=== PATIENT | female | born 1990 | race Caucasian/White ===

== ENCOUNTER 2024-09-13 13:07 | Outpatient (OUT) | payer OTHER, SELFPAY ==
--- NOTE | 2024-09-13 16:50 | P.CN_ITS ---
Consult Note: HPI Data of Consult Patient: new to practice Consult date: 09/13/24 Requesting Physician: Agustin Pérez MD Primary Care Provider: KATY PATRICIO Consult Narrative Reason for consult: neck pain, left arm numbness Narrative: 34yof who presents for evaluation. notes longstanding neck, left arm symptoms. cervical mri consistent with disc bulging with nerve root impingement at c5-6 and c6-7. has undergone PT for 6 weeks within past 6 months, with worsening of symptoms. has tried baclofen, which helps. denies adverse med side effects. cc:: CC: Agustin Pérez MD Review of Systems ROS Status of ROS 10 or more systems reviewed and unremark able except as noted in history and below Meds Home Medications and Allergies Home Medications ?Medication ?Instructions ?Recorded ?Confirmed ?Type baclofen 10 mg tablet 10 mg PO BID 09/13/24 09/13/24 History Allergies Allergy/AdvReac Type Severity Reaction Status Date / Time No Known Drug Allergies Allergy Verified 09/13/24 15:10 Exam Narrative Exam Narrative: Psych-alert and oriented x 3.? Attentive and appropriate, constitutionally normal, displays normal mood and affect per situation.? There are no obvious deficits in memory, reasoning, or intellect.? Skin-no obvious rashes, bruising, or erythema noted to the patient's area of pain.? Extremities-upper extremities are warm with minimal edema and palpable pulses. Cervical- tenderness to palpation noted in the cervical spine and paraspinal musculature.? Pain is elicited with flexion, extension, and lateral rotation of the cervical spine.? Range of motion is diminished due to pain. Facet loading maneuvers are negative.? Strength-unremarkable and within normal limits Sensory-no notable sensory deficits in the bilateral upper extremities to touch or pinprick with the exception to decreased sensation to the right C5, 6, 7 dermatomal distribution.? Coordination remains intact.? Gait remains non-antalgic. Assessment and Plan Assessment and Plan (1) Cervical radiculopathy: (2) Cervical disc displacement: Plan 34yof who presents for evaluation. failed conservative measures, as noted. imaging reviewed, as noted. given symptoms and imaging, prudent to attempt left c5-6, 6-7 tfesi under fluoroscopic guidance. she is in agreement. meds reviewed, agreed to refill baclofen 10mg bid prn. follow up after procedure.
== END 2024-09-13 13:08 | disposition home or self-care (01) ==
LOC: PM 13:08
PROVIDERS: PCP Physician Assistant; Visit Provider Anesthesiology
DX: M54.12 Radiculopathy, cervical region (principal); M50.222 Other cervical disc displacement at C5-C6 level; M50.223 Other cervical disc displacement at C6-C7 level
CPT/HCPCS: G0463

== ENCOUNTER 2024-09-27 08:06 | Day surgery (SDC) | payer OTHER, SELFPAY ==
[2024-09-27 08:13] VITALS: BP 146/87; PULSE 83; TEMP 36.4; O2SAT 100
--- OUTSIDE RECORDS SUMMARY | 2024-09-27 08:27 | XMS_ITS | CCD ---
Author Organization [facility] CliniSyor Care Team Providers Care 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 Name Role Phone Yong Moraes Unavailable Caroline Sher MD Primary Care Provider [phone] Shwetha Murcia Unavailable SHWETHA PATRICIO Referring Unavailable NO PCP, NO PCP Primary Care Unavailable SOLEDAD KNIGHT Referring Unavailable NO PCP, NO PCP Primary Care Unavailable KERI RILEY. Referring Unavailable KERI RILEY Referring Unavailable MILLIE FRANCO Referring Unavailable SERVICES, [facility] Primary Care Unava ilable Shwetha Murcia Unavailable SAUMYA HARVEY Attending Unavailable MILLIE FRANCO Attending Unavailable YONG LU Attending Unavailable SHWETHA PATRICIO Attending Unavailable KAVYA FONSECA Attending Unavailable MILLIE FRANCO Attending Unavailable MILLIE FRANCO Referring Unavailable KAVYA FONSECA Attending Unavailable SHWETHA PATRICIO Referring Unavailable KAVYA FONSECA Attending Unavailable SHWETHA PATRICIO Referring Unavailable KERI RILEY Attending Unavailable KAVYA FONSECA Attending Unavailable HEMSHWETHA NGUYEN Referring Unavailable BLACKSSCOTT LIZARRAGAEMY Jennifer Attending Unavailable HEMSHWETHA NGUYEN Referring Unavailable SCOTT FONSECAEMCheyenne Elias Attending Unavailable HEMSHWETHA NGUYEN Referring Unavailable HEMSHWETHA NGUYEN Attending Unavailable Unallocatfrancesco PAPPAS, Noms Provider Primary Care Provi maggie No Pcp, No Pcp Primary Care Provider Unavailabl e Medications Current Medications Medication Drug Class(es) Dates Sig (Normalized) Sig (Original) baclofen 10 mg oral tablet (2 sources) gamma-Aminobutyric Acid-ergic Agonist Start: 08-17-2024 End: 08-31-2024 take 1 tablet by mouth twice daily as needed for muscle spasms baclofen (Lioresal) 10 MG tablet Indications: Spasm of left trapezius muscle Take 1 tablet (10 mg) by mouth 2 (two) times a day as needed for muscle spasms for up to 14 days 28 tablet 08/17/2024 08/31/2024 Active calcium carbonate 1250 mg chewable tablet (2 sources) calcium carbonat e (Os-Nestor) 1250 (500 Ca) MG chewable tablet Chew 1 tablet Daily As needed Active docusate sodium 100 mg oral capsule (1 source) take 1 capsule by mouth once daily docusate sodium (COLACE) 100 mg capsule Take 100 mg by mouth daily. Active ibuprofen 800 mg oral tablet (1 source) Nonsteroidal Anti-inflammatory Drug take 1 tablet by mouth every six hours as needed for pain ibuprofen (ADVIL,MOTRIN) 800 mg tablet Take 800 mg by mouth every 6 (six) hours as needed for pain. Active Multiple Vitamins-Minerals (HAIR SKIN AND NAILS FORMULA PO) (20 sources) Start: 01-21-2024 End: 08-17-2024 Multiple Vitamins-Minerals (HAIR SKIN AND NAILS FORMULA PO) 01/21/2024 08/17/2024 Discontinued (Other) Start: 01-21-2024 Multiple Vitam ins-Minerals (HAIR SKIN AND NAILS FORMULA PO) 01/21/2024 Active omeprazole 20 mg delayed release oral tablet (2 sources) Proton Pump Inhibitor End: 08-17-2024 take 1 tablet by mouth before mealtime omeprazole OTC (PriLOSEC OTC) 20 MG EC tablet Take 20 mg by mouth in the morning. Take before meals. Do not crush, chew, or split.. 08/17/2024 Discontinued (Ineffective) pantoprazole 40 mg delayed release oral tablet (2 sources) Proton Pump Inhibitor Start: 08-17-2024 take 1 tablet by mouth before mealtime pantoprazole (Protonix) 40 MG EC tablet Indications: Gastroesophageal reflux disease without esophagitis Take 1 tablet (40 mg) by mouth in the morning. Take before meals. Do not crush, chew, or split. Take for two weeks at a time as needed.. 30 tablet 5 08/17/2024 Active Start: 08-17-2024 take 1 tablet by contreras th before mealtime pantoprazole (Protonix) 40 MG EC tablet Indications: Gastroesophageal reflux disease without esophagitis Take 1 tablet (40 mg) by mouth in the morning. Take before meals. Do not crush, chew, or split. Take for two weeks at a time as needed.. 30 tablet 5 08/17/2024 Active 27-1 MG tablet (20 sources) End: 08-17-2024 27-1 MG tablet Take by mouth. 08/17/2024 Discontinued (Other) 27-1 MG tablet Take by mouth. Active Problems Active Problems Problem Classification Problem Date Documented Date Episodic/Chronic Esophageal disorders (2 sources) Gastroesophageal reflux disease without esophagitis; Translations: [Gastro-esophageal reflux disease without esophagitis] 08-17-2024 Chronic Other bone disease and musculoskeletal deformities (5 sources) Scapulalgia; Translations: [Other specified disorders of bone, shoulder] 06-16-2024 Episodic Other connective tissue disease (2 sources) Muscle spasm of cervical muscle of neck 08-17-2024 Episodic Other hereditary and degenerative nervous system conditions (20 sources) Fine tremor; Translations: [Other specified forms of tremor] Onset: 06-02-2024 06-02-2024 Chronic Other non-traumatic joint disorders (2 sources) Chronic pain of left upper limb; Translations: [Pain in left shoulder] 08-17-2024 Episodic Spondylosis; intervertebral disc disorders; other back problems (3 sources) Degeneration of cervical intervertebral disc; Translations: [Other cervical disc degeneration, unspecified cervical region] Onset: 08-09-2024 08-09-2024 Chronic Spondylosis; intervertebral disc disorders; other back problems (20 sources) Pain in cervical spine; Translations: [Cervicalgia] Onset: 06-02-2024 06-02-2024 Episodic Spontaneous (5 sources) Miscarriage; Translations: [Complete or unspecified spontaneous without complication] Onset: 08-02-2024 06-16-2024 Episodic Unclassified (2 sources) Chronic pain of left upper limb 08-17-2024 Past or Other Problems Problem Classification Problem Date Documented Da te Episodic/Chronic Administrative/social admission (1 source) Patient encounter status; Translations: [Encounter for blood-alcohol and blood-drug test] 05-24-2024 Episodic Menstrual disorders (20 sources) Menorrhagia; Translations: [Excessive and frequent menstruation with regular cycle] Onset: 08-27-2023 Resolved: 06-02-2024 06-02-2024 Chronic Other and delivery including normal (1 source) care status; Translations: [Encounter for supervision of other normal , first trimester] 05-24-2024 Episodic Other screening for suspected conditions (not mental disorders or infectious disease) (1 source) Encounter for screening for other suspected endocrine disorder; Translations: [Encounter for screening for other suspected endocrine disorder] Onset: 01-30-2024 Episodic Other skin disorders (1 source) Nonscarring hair loss, unspecified; Translations: [Nonscarring hair loss, unspecified] Onset: 01-30-2024 Episodic NEGATED: Highlighted row has been ruled out!Unclassified (1 source) No known active problems 02-04-2024 Results Test Name Value Interpretation Reference Range Facility MR CERVICAL SPINE WO CONTon 08-09-2024 MR CERVICAL SPINE WO CONT MR CERVICAL SPINE WO CONT CLINICAL INFORMATION: Cervical spine pain; Cervical radiculopathy at C5 TECHNIQUE: MR CERVICAL SPINE WO CONT Multisequence multiplanar imaging of the cervical spine was obtained utilizing the routine cervical protocol. There is no cervical malalignment. Endplates appear intact without compression. Cerebellar tonsils are normal position. Cord signal characteristics are unremarkable. The C2-3, C3-4, C4-C5 levels are unremarkable. At the C5-6 level there is disc protrusion slightly asymmetric to the left. Central canal is only mildly narrowed. No significant neural foraminal encroachment. At the C6-7 level minor disc protrusion again seen with only mild central canal narrowing. Neural foramina appear patent. C7-T1 level is unremarkable. Posterior elements appear intact. Facets are aligned. Inversion recovery images show normal bone marrow signal. IMPRESSION: Mild degenerative changes at C5-6 and C6-7 without significant stenosis. Finalized by Tiburcio Gordon MD on 08/09/2024 12:20 PM Normal [facility] HCG.beta subunit IA 3rd IS Q non 08-02-2024 HCG.beta subunit Qn 7 m[IU]/mL Normal [facility] Comment on above: Result Comment: NEW REFERENCE RANGE WEEKS (SINCE LMP) MIU/mL 3 WEEKS 5 - 50 4 WEEKS 5 - 426 5 WEEKS 18 - 7,340 6 WEEKS 1,080 - 56,500 7-8 WEEKS 7,650 - 229,000 9-12 WEEKS 25,700 - 288,000 13-16 WEEKS 13,300 - 254,000 17-24 WEEKS 4,060 - 165,400 25-40 WEEKS 3,640 - 117,000 MALES AND NON- FEMALES - <5 MIU/mL This test has been FDA approved for use in only. Elevated levels are not necessarily diagnostic for trophoblastic or nontrophoblastic neoplasms. Performed By: #### C BCA, 2839-9, THYR, 3051-0, 2842-3, 2132-9, 2243-4, 50347-0 #### [facility] ([id number]) [address] [place] [address], [facility] [address] [place] [address] HCG.beta subunit IA 3rd IS Q non 07-17-2024 HCG.beta subunit Qn 77 m[IU]/mL Normal [facility] Comment on above: Result Comment: NEW REFERENCE RANGE WEEKS (SINCE LMP) MIU/mL 3 WEEKS 5 - 50 4 WEEKS 5 - 426 5 WEEKS 18 - 7,340 6 WEEKS 1,080 - 56,500 7-8 WEEKS 7,650 - 229,000 9-12 WEEKS 25,700 - 288,000 13-16 WEEKS 13,300 - 254,000 17-24 WEEKS 4,060 - 165,400 25-40 WEEKS 3,640 - 117,000 MALES AND NON- FEMALES - <5 MIU/mL This test has been FDA approved for use in only. Elevated levels are not necessarily diagnostic for trophoblastic or nontrophoblastic neoplasms. Performed By: #### C BCA, 2839-9, THYR, 3051-0, 2842-3, 2132-9, 2243-4, 13372-7 #### [facility] ([id number]) [facility], [address] [place] [address] HCG.beta subunit IA 3rd IS Q non 07-03-2024 HCG.beta subunit Qn 3133 m[IU]/mL Normal [facility] Comment on above: Result Comment: NEW REFERENCE RANGE WEEKS (SINCE LMP) MIU/mL 3 WEEKS 5 - 50 4 WEEKS 5 - 426 5 WEEKS 18 - 7,340 6 WEEKS 1,080 - 56,500 7-8 WEEKS 7,650 - 229,000 9-12 WEEKS 25,700 - 288,000 13-16 WEEKS 13,300 - 254,000 17-24 WEEKS 4,060 - 165,400 25-40 WEEKS 3,640 - 117,000 MALES AND NON- FEMALES - <5 MIU/mL This test has been FDA approved for use in only. Elevated levels are not necessarily diagnostic for trophoblastic or nontrophoblastic neoplasms. Performed By: #### 2 0415-6 #### [facility] ([id number]) [address] [place] [address], [address] [place] [address] CBC AND AUTO DIFFon 01-30-20 24 ABSOLUTE BASOPHIL 0.1 X10E9/L Normal 0.0-0.2 [facility] Comment on above: Performed By: #### C BCA, 2839-9, THYR, 3051-0, 2842-3, 2132-9, 2243-4, 72268-0 #### [facility] ([id number]) [address] [place] [address], [address] [place] [address] ABSOLUTE NEUTROPHIL 2.7 X10E9/L Normal 1.5-6.6 [facility] Comment on above: Performed By: #### C BCA, 2839-9, THYR, 3051-0, 2842-3, 2132-9, 2243-4, 40024-1 #### [facility] ([id number]) [address] [place] [address], [address] [place] [address] Basophils/100 WBC (Bld) 0.9 % Normal [facility] Comment on above: Performed By: #### C BCA, 2839-9, THYR, 3051-0, 2842-3, 2132-9, 2243-4, 29180-4 #### [facility] ([id number]) [address], [address] [place] [address] Eosinophils (Bld) [#/Vol] 0.1 10*3/uL Normal 0.0-0.4 [facility] Comment on above: Performed By: #### C BCA, 2839-9, THYR, 3051-0, 2842-3, 2132-9, 2243-4, 82212-1 #### [facility] ([id number]) [address], [address] [place] [address] Eosinophils/100 WBC (Bld) 1.5 % Normal [facility] Comment on above: Performed By: #### C BCA, 2839-9, THYR, 3051-0, 2842-3, 2132-9, 2243-4, 64720-9 #### [facility] ([id number]) [address], [facility] [address] [place] [address] Erythrocyte distribution width (RBC) [Ratio] 14.4 % Normal 11.5-15.0 [facility] Comment on above: Performed By: #### C BCA, 2839-9, THYR, 3051-0, 2842-3, 2132-9, 2243-4, 04230-8 #### [facility] ([id number]) [address] [address] [place] [address] Hematocrit (Bld) [Volume fraction] 40.9 % Normal 35-47 [facility] Comment on above: Performed By: #### C BCA, 2839-9, THYR, 3051-0, 2842-3, 2132-9, 2243-4, 83339-6 #### [facility] ([id number]) [address], [address] [place] [address] Hemoglobin (Bld) [Mass/Vol] 13.9 g/dL Normal 11.7-15.5 [facility] Comment on above: Performed By: #### C BCA, 2839-9, THYR, 3051-0, 2842-3, 2132-9, 2243-4, 55616-8 #### [facility] ([id number]) [address], [address] [place] [address] Lymphocytes (Bld) [#/Vol] 2.4 10*3/uL Normal 1.0-3.5 [facility] Comment on above: Performed By: #### C BCA, 2839-9, THYR, 3051-0, 2842-3, 2132-9, 2243-4, 84713-1 #### [facility] ([id number]) [address], [address] [place] [address] Lymphocytes/100 WBC (Bld) 43.3 % Normal [facility] Comment on above: Performed By: #### C BCA, 2839-9, THYR, 3051-0, 2842-3, 2132-9, 2243-4, 83007-3 #### [facility] ([id number]) [address], [address] [place] [address] MCH (RBC) [Entitic mass] 28.2 pg Normal 27-34 [facility] Comment on above: Performed By: #### C BCA, 2839-9, THYR, 3051-0, 2842-3, 2132-9, 2243-4, 95078-5 #### [facility] ([id number]) [address], [address] [place] [address] MCHC (RBC) [Mass/Vol] 34.0 g/dL Normal 32-36 [facility] Comment on above: Performed By: #### C BCA, 2839-9, THYR, 3051-0, 2842-3, 2132-9, 2243-4, 06887-1 #### [facility] ([id number]) [address], [address] [place] [address] MCV (RBC) [Entitic vol] 83 fL Normal 80-100 [facility] Comment on above: Performed By: #### C BCA, 2839-9, THYR, 3051-0, 2842-3, 2132-9, 2243-4, 37736-2 #### [facility] ([id number]) [address], [address] [place] [address] Monocytes (Bld) [#/Vol] 0.4 10*3/uL Normal 0-0.9 [facility] Comment on above: Performed By: #### C BCA, 2839-9, THYR, 3051-0, 2842-3, 2132-9, 2243-4, 89381-3 #### [facility] ([id number]) [address], [address] [place] [address] Monocytes/100 WBC (Bld) 7.4 % Normal [facility] Comment on above: Performed By: #### C BCA, 2839-9, THYR, 3051-0, 2842-3, 2132-9, 2243-4, 54002-7 #### [facility] ([id number]) [address], [address] [place] [address] Neutrophils/100 WBC (Bld) 46.9 % Normal [facility] Comment on above: Performed By: #### C BCA, 2839-9, THYR, 3051-0, 2842-3, 2132-9, 2243-4, 34158-7 #### [facility] ([id number]) [address], [address] [place] [address] Platelet mean volume (Bld) [Entitic vol] 8.1 fL Normal 7-12 [facility] Comment on above: Performed By: #### C BCA, 2839-9, THYR, 3051-0, 2842-3, 2132-9, 2243-4, 75907-2 #### [facility] ([id number]) [address], [address] [place] [address] Platelets (Bld) [#/Vol] 290 10*3/uL Normal 150-450 [facility] Comment on above: Performed By: #### C BCA, 2839-9, THYR, 3051-0, 2842-3, 2132-9, 2243-4, 68132-9 #### [facility] ([id number]) [address], [address] [place] [address] RBC COUNT 4.94 X10E12/L Normal 3.80-5.20 [facility] Comment on above: Performed By: #### Haider BCA, 2839-9, THYR, 3051-0, 2842-3, 2132-9, 2243-4, 02568-8 #### [facility] ([id number]) [address], [address] [place] [address] WBC (Bld) [#/Vol] 5.7 10*3/uL Normal 4.0-11.0 [facility] Comment on above: Performed By: #### Haider BCA, 2839-9, THYR, 3051-0, 2842-3, 2132-9, 2243-4, 79886-8 #### [facility] ([id number]) [address], [address] [place] [address] Cortisol [Mass/Vol]on 2023 CORTISOL 7.9 ug/dL Normal [facility] Comment on above: Result Comment: Due to the diurnal variation of cortisol levels in normal subjects, all cortisol measurements should be referenced to the time of day of sample collection. AM Cortisol Age>=6 6.7-22.4 ug/dL PM Cortisol Age>=6 <10 ug/dL Performed By: #### 2 143-6 #### [facility] ([id number]) [address] [facility], [address] [place] [address] E2 [Mass/Vol]on 01-30-2024 ESTRADIOL 45.3 pg/mL Normal [facility] Comment on above: Result Comment: NON- FEMALES Mid follicular: 25-115 pg/mL Ovulatory Peak: 32.1-517 pg/mL Mid Luteal: 36.5-246 pg/mL Post-Menopausal Females: <15.0-25.1 pg/mL (Not on hormone therapy) The Access Sensitive Estradiol assay results are not intended to be used to measure the effectiveness of exogeneous Estradiol supplementation, for example, when the patient is on hormone replacement therapy. The presence of estradiol drug analogues and their metabolites could have an impact on estradiol recovery when using this assay. Performed By: #### C BCA, 2839-9, THYR, 3051-0, 2842-3, 2131-9, 3-4, 19060-9 #### [facility] ([id number]) [address] [facility], [address] [place] [address] FREE T3on 01-30-2024 Free T3 [Mass/Vol] 3.69 pg/mL Normal 2.50-3.90 [facility] Comment on above: Performed By: #### C BCA, 2839-9, THYR, 3051-0, 2842-3, 9, 3-4, 45458-2 #### [facility] ([id number]) [address], [address] [place] [address] Follitropin Qnon 01-30-2024 FOLLICLE STIM HORMONE 9.1 mIU/mL Normal [facility] Comment on above: Result Comment: NORMAL FEMALE Luteal 1.8-5.1 mIU/mL Follicular 3.8-8.8 mIU/mL Mid Cycle 4.5-22.5 mIU/mL Post Migdalia 16.7-113.6 mIU/mL Performed By: ###Aixa Maloney BCA, 2839-9, THYR, 3051-0, 2842-3, 2131-9, 3-4, 54561-2 #### [facility] ([id number]) [address], [address] [place] [address] Progesterone [Mass/Vol]on PROGESTERONE 0.5 ng/mL Normal [facility] Comment on above: Result Comment: FEMALES: 1st Tri: 4.7-50.7 ng/ml 2nd Tri: 19.4-45.3 ng/ml MENSTRUATING FEMALES: Follicular: 0.3-1.5 ng/ml Mid Luteal: 5.2-18.6 ng/ml Post [place]: <0.1-0.8 ng/ml Performed By: ##Manfred Maloney BCA, 2839-9, THYR, 3051-0, 2842-3, 2132-9, 2243-4, 89209-1 #### [facility] ([id number]) [address], [address] [place] [address] Prolactin [Mass/Vol]on 01-29 PROLACTIN 6.1 ng/mL Normal 3.3-26.7 [facility] Comment on above: Performed By: #### C BCA, 2839-9, THYR, 3051-0, 2842-3, 2132-9, 2243-4, 42991-3 #### [facility] ([id number]) [address], [address] [place] [address] THYROID PROFILEon 01-30-2024 Free T4 [Mass/Vol] 1.04 ng/dL Normal 0.61-1.60 [facility] Comment on above: Performed By: #### C BCA, 2839-9, THYR, 3051-0, 2842-3, 2132-9, 2243-4, 85758-9 #### [facility] ([id number]) [address] [facility], [address] [place] [address] TSH 0.95 uIU/mL Normal 0.49-4.67 [facility] Comment on above: Performed By: #### C BCA, 2839-9, THYR, 3051-0, 2842-3, 2132-9, 2243-4, 19242-7 #### [facility] ([id number]) [address], [address] [place] [address] VITAMIN B12on 01-30-2024 Cobalamin (Vitamin B12) [Mass/Vol] 422 pg/mL Normal 180-914 [facility] Comment on above: Performed By: #### C BCA, 2839-9, THYR, 3051-0, 2842-3, 2132-9, 2243-4, 73663-0 #### [facility] ([id number]) [address], [address] [place] [address] Complete Blood Count Auto Di ffon 01-27-2022 Basophils (Bld) [#/Vol] 0.1 10*3/uL Normal 0.0-0.2 [facility] Comment on above: Order Comment: Comme nt Draw at 630 am Result Comment: PERF ORMED BY: [facility] [address] [place] [address] PATHOLOGIST QUALITY AUDITOR CARMELO GROVES M.D. Performed By: #### C BC #### [address] Basophils/100 WBC (Bld) 0.5 % Normal . [facility] Comment on above: Order Comment: Comme nt Draw at 630 am Performed By: #### C BC #### [address] Eosinophils (Bld) [#/Vol] 0.3 10*3/uL Normal 0.0-0.45 [facility] Comment on above: Order Comment: Comme nt Draw at 630 am Performed By: #### C BC #### [address] Eosinophils/100 WBC (Bld) 1.9 % Normal . [facility] Comment on above: Order Comment: Comme nt Draw at 630 am Performed By: #### C BC #### [address] Erythrocyte distribution width (RBC) [Ratio] 17.4 % High 11.9-15.3 [facility] Comment on above: Order Comment: Comme nt Draw at 630 am Performed By: #### C BC #### [address] Hematocrit (Bld) [Volume fraction] 30.5 % Low 34.0-46.4 [facility] Comment on above: Order Comment: Comme nt Draw at 630 am Performed By: #### C BC #### [address] Hemoglobin (Bld) [Mass/Vol] 9.7 g/dL Low 11.8-15.4 [facility] Comment on above: Order Comment: Comme nt Draw at 630 am Performed By: #### C BC #### [address] Lymphocytes (Bld) [#/Vol] 3.3 10*3/uL Normal 1.00-4.8 [facility] Comment on above: Order Comment: Comme nt Draw at 630 am Performed By: #### C BC #### [address] Lymphocytes/100 WBC (Bld) 24.6 % Normal . [facility] Comment on above: Order Comment: Comme nt Draw at 630 am Performed By: #### C BC #### [address] MCH (RBC) [Entitic mass] 22.3 pg Low 24.7-34.3 [facility] Comment on above: Order Comment: Comme nt Draw at 630 am Performed By: #### C BC #### [address] MCV (RBC) [Entitic vol] 70.5 fL Low 80-100 [facility] Comment on above: Order Comment: Comme nt Draw at 630 am Performed By: #### C BC #### [address] Mean Corpuscular HGB Conc 31.6 g/dL Low 32.0-35.0 [facility] Comment on above: Order Comment: Comme nt Draw at 630 am Performed By: #### C BC #### [address] Monocytes (Bld) [#/Vol] 0.7 10*3/uL Normal 0.0-0.8 [facility] Comment on above: Order Comment: Comme nt Draw at 630 am Performed By: #### C BC #### [address] Monocytes/100 WBC (Bld) 5.3 % Normal . [facility] Comment on above: Order Comment: Comme nt Draw at 630 am Performed By: #### C BC #### [address] Neutrophils (Bld) [#/Vol] 9.0 10*3/uL High 1.8-7.7 [facility] Comment on above: Order Comment: Comme nt Draw at 630 am Performed By: #### C BC #### [facility] [address] Neutrophils/100 WBC (Bld) 67.7 % Normal . [facility] Comment on above: Order Comment: Comme nt Draw at 630 am Performed By: #### C BC #### [facility] [address] Nucleated RBC/100 WBC (Bld) [Ratio] 0.1 % Normal 0-0.5 [facility] Comment on above: Order Comment: Comme nt Draw at 630 am Performed By: #### C BC #### [facility] [address] [place] [address] Platelet mean volume (Bld) [Entitic vol] 8.0 fL Normal 6.3-10.7 [facility] Comment on above: Order Comment: Comme nt Draw at 630 am Performed By: #### C BC #### [facility] [address] [place] [address] [place] Platelets (Bld) [#/Vol] 242 10*3/uL Normal 150-450 [facility] Comment on above: Order Comment: Comme nt Draw at 630 am Performed By: #### C BC #### [place] [address] [place] RBC (Bld) [#/Vol] 4.33 10*6/uL Normal 3.60-5.00 [facility] Comment on above: Order Comment: Comme nt Draw at 630 am Performed By: #### C BC #### [place] [address] [place] WBC (Bld) [#/Vol] 13.3 10*3/uL High 4.5-11.0 [facility] Comment on above: Order Comment: Comme nt Draw at 630 am Performed By: #### C BC #### [place] [address] [place] Amnisure(Pamg-1)on 2 Amnisure Positive High Negative [facility] Comment on above: Order Comment: Comme nt For suspected repture of membranes Result Comment: PERF ORMED BY: [facility] [address] [place] [address] PATHOLOGIST QUALITY AUDITOR CARMELO GROVES M.D. Performed By: #### C UU, ADDONUAPLUS, AMNISURE-, OBUDS #### [facility] [address] COVID-19 Antigenon 2 COVID-19 Antigen Healthcare Worker?: N Reference Range: Negative Negative results, from patients with symptom onset beyond five days, should be treated as presumptive and confirmation with a molecular assay, if necessary, for patient management, may be performed. Negative results do not rule out COVID-19 and should not be used as the sole basis for treatment or patient management decisions, including infection control decisions. Negative results should be considered in the context of a patient's recent exposures, history and the presence of clinical signs and symptoms consistent with COVID-19. The Brigid SARS Antigen BRAD does not differentiate between SARS-CoV and SARS-CoV-2. This test was developed and its performance characteristic determined by [employer] and validated at [facility]. This test has not been FDA cleared or approved. This test has been authorized by FDA under an Emergency Use Authorization (EUA). This test has been validated in accordance with the FDA's Guidance Document (Policy for Diagnostics Testing in Laboratories Certified to Perform High Complexity Testing under CLIA prior to Emergency Use Authorization for Coronavirus Disease-2019 during the Public Health Emergency) issued on December 16, 2019. This test is only authorized for the duration of time the declaration that circumstances exist justifying the authorization of the emergency use of in vitro diagnostic tests for detection of SARS-CoV-2 virus and/or diagnosis of COVID-19 infection under section 564(b)(1) of the Act, 21 U.S.C. 360bbb-3(b)(1), unless the authorization is terminated or revoked sooner. SARS-CoV+SARS-CoV-2 (COVID-19) Ag [Presence] in Respiratory specimen by Rapid immunoassay Negative for SARS Antigen by BRAD PERFORMED BY: [facility] [address] [place] [address] PATHOLOGIST QUALITY AUDITOR CARMELO GROVES M.D. Normal [facility] Comment on above: Performed By: #### C OVID-19 BRIGID, SOFIANEG #### [facility] [address] [place] [address] Complete Blood Count Auto Di ffon 01-26-2022 Basophils (Bld) [#/Vol] 0.0 10*3/uL Normal 0.0-0.2 [facility] Comment on above: Result Comment: PERF ORMED BY: [place] [address] PATHOLOGIST QUALITY AUDITOR CARMELO GROVES M.D. Performed By: #### R CO W RFX #### [facility] , #### CBC #### [address] Basophils/100 WBC (Bld) 0.3 % Normal . [facility] Comment on above: Performed By: #### R CO W RFX #### [facility] , #### CBC #### [address] Eosinophils (Bld) [#/Vol] 0.1 10*3/uL Normal 0.0-0.45 [facility] Comment on above: Performed By: #### R CO W RFX #### [facility] , #### CBC #### [facility] [address] [place] [address] Eosinophils/100 WBC (Bld) 1.2 % Normal . [facility] Comment on above: Performed By: #### R CO W RFX #### [facility] , #### CBC #### [facility] [address] [place] [address] Erythrocyte distribution width (RBC) [Ratio] 17.3 % High 11.9-15.3 [facility] Comment on above: Performed By: #### R CO W RFX #### [facility] , #### CBC #### [address] Hematocrit (Bld) [Volume fraction] 33.5 % Low 34.0-46.4 [facility] Comment on above: Performed By: #### R CO W RFX #### [facility] , #### CBC #### [address] Hemoglobin (Bld) [Mass/Vol] 10.6 g/dL Low 11.8-15.4 [facility] Comment on above: Performed By: #### R CO W RFX #### [facility] , #### CBC #### [address] Lymphocytes (Bld) [#/Vol] 2.6 10*3/uL Normal 1.00-4.8 [facility] Comment on above: Performed By: #### R CO W RFX #### [facility] , #### CBC #### [address] Lymphocytes/100 WBC (Bld) 21.8 % Normal . [facility] Comment on above: Performed By: #### R CO W RFX #### [facility] , #### CBC #### [address] MCH (RBC) [Entitic mass] 22.2 pg Low 24.7-34.3 [facility] Comment on above: Performed By: #### R CO W RFX #### [facility] , #### CBC #### [address] MCV (RBC) [Entitic vol] 70.1 fL Low 80-100 [facility] Comment on above: Performed By: #### R CO W RFX #### [facility] , #### CBC #### [address] Mean Corpuscular HGB Conc 31.6 g/dL Low 32.0-35.0 [facility] Comment on above: Performed By: #### R CO W RFX #### [facility] , #### CBC #### [facility] [address] [place] [address] Monocytes (Bld) [#/Vol] 0.7 10*3/uL Normal 0.0-0.8 [facility] Comment on above: Performed By: #### R CO W RFX #### [facility] , #### CBC #### [facility] [address] [place] [address] Monocytes/100 WBC (Bld) 6.3 % Normal . [facility] Comment on above: Performed By: #### R CO W RFX #### [facility] , #### CBC #### [facility] [address] [place] [address] Neutrophils (Bld) [#/Vol] 8.4 10*3/uL High 1.8-7.7 [facility] Comment on above: Performed By: #### R CO W RFX #### [facility] , #### CBC #### [facility] [address] [place] [address] Neutrophils/100 WBC (Bld) 70.4 % Normal . [facility] Comment on above: Performed By: #### R CO W RFX #### [facility] , #### CBC #### [facility] [address] [place] [address] [place] Nucleated RBC/100 WBC (Bld) [Ratio] 0.0 % Normal 0-0.5 [facility] Comment on above: Performed By: #### R CO W RFX #### [facility] , #### CBC #### [facility] [address] [place] [address] [place] Platelet mean volume (Bld) [Entitic vol] 8.1 fL Normal 6.3-10.7 [facility] Comment on above: Performed By: #### R CO W RFX #### [facility] , #### CBC #### [facility] [address] Platelets (Bld) [#/Vol] 267 10*3/uL Normal 150-450 [facility] Comment on above: Performed By: #### R CO W RFX #### [facility] , #### CBC #### [facility] [address] [place] [address] RBC (Bld) [#/Vol] 4.77 10*6/uL Normal 3.60-5.00 [facility] Comment on above: Performed By: #### R CO W RFX #### [facility] , #### CBC #### [facility] [address] [place] [address] WBC (Bld) [#/Vol] 11.9 10*3/uL High 4.5-11.0 [facility] Comment on above: Performed By: #### R CO W RFX #### [facility] , #### CBC #### [place] [address] [place] Dipstick and Microscopicon 0 01-26-2022 Appearance (U) Clear Normal Clear [facility] Comment on above: Order Comment: Name Collection Type:: Clean-Voided Midstream Performed By: #### C UU, ADDONUAPLUS, AMNISURE-, OBUDS #### [place] [address] [place] Bacteria,Urine None Seen Normal None Seen [facility] Comment on above: Order Comment: Name Collection Type:: Clean-Voided Midstream Performed By: #### C UU, ADDONUAPLUS, AMNISURE-, OBUDS #### [place] [address] [place] Bilirubin,Urine Negative Normal Negative [facility] Comment on above: Order Comment: Name Collection Type:: Clean-Voided Midstream Performed By: #### C UU, ADDONUAPLUS, AMNISURE-, OBUDS #### [address] Color (U) Yellow Normal Yellow [facility] Comment on above: Order Comment: Name Collection Type:: Clean-Voided Midstream Performed By: #### C UU, ADDONUAPLUS, AMNISURE-, OBUDS #### [address] Glucose Ql (U) Normal Normal Normal [facility] Comment on above: Order Comment: Name Collection Type:: Clean-Voided Midstream Performed By: #### C UU, ADDONUAPLUS, AMNISURE-, OBUDS #### [address] Hyaline Casts,Urine 0-8 Normal 0-8 [facility] Comment on above: Order Comment: Name Collection Type:: Clean-Voided Midstream Result Comment: PERF ORMED BY: [place] [address] PATHOLOGIST QUALITY AUDITOR CARMELO GROVES M.D. Performed By: #### C UU, ADDONUAPLUS, AMNISURE-, OBUDS #### [address] Ketones Ql (U) Negative Normal Negative [facility] Comment on above: Order Comment: Name Collection Type:: Clean-Voided Midstream Performed By: #### C UU, ADDONUAPLUS, AMNISURE-, OBUDS #### [address] Leukocyte esterase Test strip Ql (U) 1+ High Negative [facility] Comment on above: Order Comment: Name Collection Type:: Clean-Voided Midstream Performed By: #### C UU, ADDONUAPLUS, AMNISURE-, OBUDS #### [address] [place] [address] [place] Nitrite,Urine Negative Normal Negative [facility] Comment on above: Order Comment: Name Collection Type:: Clean-Voided Midstream Performed By: #### C UU, ADDONUAPLUS, AMNISURE-, OBUDS #### [address] Occult Blood,Urine 2+ High Negative [facility] Comment on above: Order Comment: Name Collection Type:: Clean-Voided Midstream Result Comment: PERF ORMED BY: [place] [address] PATHOLOGIST QUALITY AUDITOR CARMELO GROVES M.D. Performed By: #### C UU, ADDONUAPLUS, AMNISURE-, OBUDS #### [address] pH (U) 6.5 [pH] Normal 5.0-9.0 [facility] Comment on above: Order Comment: Name Collection Type:: Clean-Voided Midstream Performed By: #### C UU, ADDONUAPLUS, AMNISURE-, OBUDS #### [address] Protein,Urine Negative Normal Negative [facility] Comment on above: Order Comment: Name Collection Type:: Clean-Voided Midstream Performed By: #### C UU, ADDONUAPLUS, AMNISURE-, OBUDS #### [address] RBC LM.HPF (Urine sed) [#/Area] 0 /[HPF] Normal 0-4 [facility] Comment on above: Order Comment: Name Collection Type:: Clean-Voided Midstream Performed By: #### C UU, ADDONUAPLUS, AMNISURE-, OBUDS #### [address] Specificy [place],Urine 1.010 Normal 1.001-1.030 [facility] Comment on above: Order Comment: Name Collection Type:: Clean-Voided Midstream Performed By: #### C UU, ADDONUAPLUS, AMNISURE-, OBUDS #### [facility] [address] [place] [address] [place] Squamous Epithelial Cell,Urine 10-19 High 0-2 [facility] Comment on above: Order Comment: Name Collection Type:: Clean-Voided Midstream Performed By: #### C UU, ADDONUAPLUS, AMNISURE-, OBUDS #### [facility] [address] Urobilinogen,Urine Normal Normal Normal [facility] Comment on above: Order Comment: Name Collection Type:: Clean-Voided Midstream Performed By: #### C UU, ADDONUAPLUS, AMNISURE-, OBUDS #### [address] WBC,Urine 5-9 High 0-4 [facility] Comment on above: Order Comment: Name Collection Type:: Clean-Voided Midstream Performed By: #### C UU, ADDONUAPLUS, AMNISURE-, OBUDS #### [facility] [address] [place] [address] OB Urine Drug Screen (NO THC )on 01-26-2022 Amphetamine Screen,Urine Negative Normal Negative [facility] Comment on above: Performed By: #### C UU, ADDONUAPLUS, AMNISURE-, OBUDS #### [facility] [address] [place] [address] Barbiturate Screen,Urine Negative Normal Negative [facility] Comment on above: Performed By: #### C UU, ADDONUAPLUS, AMNISURE-, OBUDS #### [place] [address] [place] Benzodiazepines Screen,Urine Negative Normal Negative [facility] Comment on above: Performed By: #### C UU, ADDONUAPLUS, AMNISURE-, OBUDS #### [facility] [address] [place] [address] Cocaine Screen,Urine Negative Normal Negative [facility] Comment on above: Performed By: #### C UU, ADDONUAPLUS, AMNISURE-, OBUDS #### [address] Opiate Screen,Urine Negative Normal Negative [facility] Comment on above: Performed By: #### C UU, ADDONUAPLUS, AMNISURE-, OBUDS #### [address] Phencyclidine Screen, Urine Negative Normal Negative [facility] Comment on above: Result Comment: Thes e are unconfirmed results and should not be used for legal purposes. Drug Cut-Off Concentration: AMPH 1000 ng/mL JOEL 200 ng/mL JANKI 200 ng/mL COCM 300 ng/mL OP 300 ng/mL PCP 25 ng/mL PERFORMED BY: [place] [address] PATHOLOGIST QUALITY AUDITOR CARMELO GROVES M.D. Performed By: #### C UU, ADDONUAPLUS, AMNISURE-, OBUDS #### [address] RPR w/rfx to Quant TP Abson 01-26-2022 RPR, Rfx Quant RPR Non-Reactive Normal Non Reactive [facility] Comment on above: Result Comment: Perf ormed at: - [facility] [address] [id number] Tire Technician: Tiburcio Figueredo PhD, Phone: [phone] PERFORMED BY: [place] [address] PATHOLOGIST QUALITY AUDITOR CARMELO GROVES M.D. Performed By: #### R CO W RFX #### [facility] , #### CBC #### [address] Brigid Ag Negativeon 01-27-20 Brigid Ag Negative Negative Normal Negative [facility] Comment on above: Result Comment: This is a duplicate Brigid SARS Antigen (BRAD) result to be used for statistical tracking purpose only. PERFORMED BY: [place] [address] PATHOLOGIST QUALITY AUDITOR CARMELO GROVES M.D. Performed By: #### C OVID-19 BRIGID, SOFIANEG #### [facility] [address] [place] [address] Urine Cultureon 01-26-2022 Bacteria identified Cx Nom (U) ORGANISM: Strep. agalactiae Grp B (O:B) [place] Count 15,000 PERFORMED BY: [place] [address] PATHOLOGIST QUALITY AUDITOR CARMELO GROVES M.D. [facility] Comment on above: Performed By: #### C UU, ADDONUAPLUS, AMNISURE-, OBUDS #### [facility] [address] [place] [address] Strep B Cultureon 01-01-2022 Strep B Culture Reason for Exam 35 weeks gestation of ; screening for stre Vaginal/Rectal ORGANISM: Strep. agalactiae Grp B (O:B) PERFORMED BY: [place] [address] PATHOLOGIST QUALITY AUDITOR CARMELO GROVES M.D. [facility] Comment on above: Performed By: #### C USTB #### [place] [id number] [facility] Vital Signs Date Time Vital Sign Value Performing Clinician Sukhwinder merritt 08-17-2024 10:050 Body height 162.6 cm Shwetha Patricio PA Work Phone: [facility] 08-17-2024 10:16050 Body mass index (BMI) [Ratio] 24.44 kg/m2 Shwetha Patricio PA Work Phone: [facility] 08-17-2024 10:16050 Body weight 64.59 kg Shwetha Patricio PA Work Phone: [facility] 08-17-2024 10:16050 Diastolic blood pressure 84 mm[Hg] Shwetha Patricio PA Work Phone: [facility] 08-17-2024 10:16-0500 Heart rate 77 /min Shwetha Hemmer PA Work Phone: [facility] 08-17-2024 10:16-0500 Respiratory rate 16 /min Shwetha Hemmer PA Work Phone: [facility] 08-17-2024 10:16-0500 SaO2% (BldA) [Mass fraction] 99 % Shwetha Hemmer PA Work Phone: [facility] 08-17-2024 10:16-0500 Systolic blood pressure 126 mm[Hg] Shwetha Hemmer PA Work Phone: [facility] 06-02-2024 11:49-0400 Body height 162.6 cm Shwetha Hemmer PA Work Phone: [facility] 06-02-2024 11:49-0400 Body mass index (BMI) [Ratio] 24.07 kg/m2 Shwetha Hemmer PA Work Phone: [facility] 06-02-2024 11:49-0400 Body weight 63.59 kg Shwetha Hemmer PA Work Phone: [facility] 06-02-2024 11:49-0400 Diastolic blood pressure 82 mm[Hg] Shwetha Hemmer PA Work Phone: [facility] 06-02-2024 11:49-0400 Heart rate 79 /min Shwetha Hemmer PA Work Phone: [facility] 06-02-2024 11:49-0400 Respiratory rate 16 /min Shwetha Hemmer PA Work Phone: [facility] 06-02-2024 11:49-0400 SaO2% (BldA) [Mass fraction] 96 % Shwetha Hemmer PA Work Phone: [facility] 06-02-2024 11:49-0400 Systolic blood pressure 122 mm[Hg] Shwetha Hemmer PA Work Phone: [facility] Healthcare Encounters Encounter Date Encounter Type Care Provider Facility Start: 09-21-2024 End: 09-21-2024 Telephone encounter Shamika Coleman [facility] Comment on above: referral Start: 08-17-2024 End: 08-17-2024 Bamboo flowsheet Shwetha Patricio PA Work Phone: [facility] Start: 08-17-2024 End: 08-17-2024 Bamboo flowsheet Shwetha Patricio PA Work Phone: [facility] Start: 08-17-2024 End: 08-17-2024 ambulatory SHWETHA PATRICIO Not Available Start: 08-17-2024 End: 08-17-2024 Office outpatient visit 25 minutes Shwetha Patricio PA Work Phone: [facility] Comment on above: Chronic left shoulde r pain (Primary Dx); Gastroesophageal reflux disease without esophagitis; Spasm of left trapezius muscle; Miscarriage Start: 08-09-2024 End: 08-09-2024 ambulatory [facility] Start: 08-02-2024 End: 08-02-2024 [facility] Start: 07-17-2024 End: 07-17-2024 ambulatory [place] [facility] Start: 07-06-2024 End: 07-06-2024 Bamboo flowsmarc Fonseca PT Work Phone: [facility] Start: 07-06-2024 End: 07-06-2024 Bamboo flowsheet Kavya Fonseca PT Work Phone: [facility] Start: 07-06-2024 End: 07-06-2024 ambulatory Kavya Fonseca PT Work Phone: [facility] Comment on above: Cervical spine pain (Primary Dx); Cervical pain; Chronic scapular pain; Cervical radiculopathy at C5 Start: 07-03-2024 End: 07-03-2024 ambulatory KERI [facility] Start: 06-28-2024 End: 06-28-2024 Bamboo flowsheet Kavya Fonseca PT Work Phone: [facility] Start: 06-28-2024 End: 06-28-2024 Bamboo flowsheet Kavya Fonseca PT Work Phone: [facility] Start: 06-28-2024 End: 06-28-2024 ambulatory Kavya Fonseca PT Work Phone: [facility] Comment on above: Cervical spine pain (Primary Dx); Cervical pain; Chronic scapular pain; Cervical radiculopathy at C5 Start: 06-23-2024 End: 06-23-2024 ambulatory Kavya Fonseca PT Work Phone: [facility] Comment on above: Cervical spine pain (Primary Dx) Start: 06-16-2024 End: 06-16-2024 Office outpatient visit 15 minutes Keri Riley DO Work Phone: [facility] Comment on above: Miscarriage Start: 06-16-2024 End: 06-16-2024 ambulatory KERI Jason ZORANSONIDO Not Available Start: 06-16-2024 End: 06-16-2024 Bamboo flowsheet Kavya Collierton PT Work Phone: [facility] Start: 06-16-2024 End: 06-16-2024 Bamboo flowsheet Kavya Fonseca PT Work Phone: [facility] Start: 06-16-2024 End: 06-16-2024 ambulatory Kavya Fonseca PT Work Phone: [facility] Comment on above: Cervical pain (Prima ry Dx); Chronic scapular pain; Cervical radiculopathy at C5 Start: 06-14-2024 End: 06-14-2024 Bamboo flowsheet Kavya Collierton PT Work Phone: [facility] Start: 06-14-2024 End: 06-14-2024 Bamboo flowsheet Kavya Jennifer Blackston PT Work Phone: [facility] Start: 06-14-2024 End: 06-14-2024 ambulatory KAVYA T AMIRASHERYL [facility] Comment on above: Cervical pain (Prima ry Dx); Chronic scapular pain; Cervical radiculopathy at C5 Start: 06-09-2024 End: 06-09-2024 Bamboo flowsheet Kavya Elias Amirasheryl PT Work Phone: [facility] Start: 06-09-2024 End: 06-09-2024 Bamboo flowsheet Kavya Jennifer Amirasheryl PT Work Phone: [facility] Start: 06-09-2024 End: 06-09-2024 ambulatory KAVYA Elias AMIRASHERYL [facility] Comment on above: Cervical pain (Prima ry Dx); Chronic scapular pain; Cervical radiculopathy at C5 Start: 06-02-2024 End: 06-02-2024 Bamboo flowsheet Shwetha Patricio PA Work Phone: [facility] Start: 06-02-2024 End: 06-02-2024 Bamboo flowsheet Shwetha Patricio PA Work Phone: [facility] Start: 06-02-2024 End: 06-02-2024 ambulatory SHWETHA PATRICIO Not Available Start: 06-02-2024 End: 06-02-2024 Office outpatient visit 25 minutes Shwetha Patricio PA Work Phone: [facility] Comment on above: Cervical spine pain (Primary Dx); Fine tremor Start: 05-24-2024 End: 05-24-2024 flow sheet [facility] Nurse [facility] Comment on above: GA: 5w0d Start: 05-24-2024 End: 05-24-2024 ambulatory SAUMYA PETFADIAI Not Available Start: 05-14-2024 End: 05-18-2024 Telephone encounter Millie Franco DO Work Phone: [facility] Start: 02-04-2024 End: 02-04-2024 ambulatory YONG LU Not Available Start: 01-30-2024 End: 01-30-2024 ambulatory MILLIE FRANCO [facility] Start: 01-29-2024 End: 01-29-2024 ambulatory MILLIE FRANCO Not Available Start: 12-29-2023 End: 12-29-2023 ambulatory SAUMYA HARVEY Not Available Start: 08-27-2023 End: 08-27-2023 ambulatory MILLIE FRANCO Not Available Procedures Date Procedure Procedure Detail Performing Clinician Start: 03-26-2023 Microscopic observat ion [Identifier] in Cervix by Cyto stain Millie Franco DO Work Phone: Plan of Treatment Date Care Activity Detail Author Start: 01-04-2032 DTaP,Tdap and Td Vaccines (3 - Td or Tdap) DTaP,Tdap and Td Vaccines (3 - Td or Tdap) [facility] Start: 03-26-2028 Screening for malign ant neoplasm of cervix [facility] Start: 03-26-2026 Screening for malign ant neoplasm of cervix Pap Smear [facility] Start: 03-14-2025 Influenza vaccination Influenza Vacc ine (#1) [facility] Comment on above: Postponed from 05/16 (Patient Refused) Start: 12-28-2024 End: 12-28-2024 Patient encounter procedure 12/28/2024 3:50 PM EDT Office Visit [facility] [address] [place] [id number] Saumya Harvey MD [address] [place], [place] [id number] [facility] Start: 08-22-2024 Tobacco Screening Tobacco Screening [facility] Start: 07-06-2024 End: 07-06-2024 ambulatory 07/06/2024 1:15 PM EDT Initial [facility] [address] [place] [phone] Keri Riley DO [address] [place] [address] [facility] Start: 06-28-2024 End: 06-28-2024 ambulatory 06/28/2024 9:00 AM EDT Treatment [facility] [address] [facility] [address] [place] [address] Kavya Fonseca, PT [address] [facility] [address] [place] [address] [facility] Start: 06-18-2024 End: 06-18-2024 ambulatory 06/18/2024 10:30 AM EDT Treatment [facility] [address] [facility] [address] [place] [address] Santos Mathews, HOG COUNTER [facility] Start: 06-16-2024 End: 06-16-2024 Professional / ancillary services management 06/16/2024 3:30 PM EDT Ancillary Procedure [facility] [address] [place] [phone] [facility] Start: 06-16-2024 End: 06-16-2024 ambulatory [facility] Start: 06-14-2024 End: 06-14-2024 ambulatory [facility] Start: 05-25-2024 End: 05-25-2024 Patient encounter procedure 05/25/2024 3:15 PM EDT Office Visit [facility] [address] [place] [address] [phone] Millie Franco, DO [address] [address] [facility] Start: 05-24-2024 End: 05-24-2025 Bacteria identified in Urine by Culture Urine culture Microbiology Routine care, subsequent in first trimester Expected: 05/24/2024 (Approximate), Expires: 05/24/2025 [facility] Work Phone: Comment on above: Expected: 05/24/2024 (Approximate), Expires: 05/24/2025 Start: 05-24-2024 End: 05-24-2025 Blood type and Indirect antibody screen panel - Blood Type and screen Lab Routine care, subsequent in first trimester Expected: 05/24/2024 (Approximate), Expires: 05/24/2025 [facility] Comment on above: Expected: 05/24/2024 (Approximate), Expires: 05/24/2025 Start: 05-24-2024 End: 05-24-2025 CBC W Auto Differential panel - Blood CBC and differential Lab Routine care, subsequent in first trimester Expected: 05/24/2024 (Approximate), Expires: 05/24/2025 [facility] Comment on above: Expected: 05/24/2024 (Approximate), Expires: 05/24/2025 Start: 05-24-2024 End: 05-24-2025 Drugs of abuse panel - Urine by Screen method Rapid drug screen, urine Lab Routine care, subsequent in first trimester Encounter for drug screening Expected: 05/24/2024 (Approximate), Expires: 05/24/2025 [facility] Comment on above: Expected: 05/24/2024 (Approximate), Expires: 05/24/2025 Start: 05-24-2024 End: 05-24-2025 Hepatitis B virus surface Ag [Presence] in Serum or Plasma by Immunoassay Hepatitis B surface antigen Lab Routine care, subsequent in first trimester Expected: 05/24/2024 (Approximate), Expires: 05/24/2025 [facility] Comment on above: Expected: 05/24/2024 (Approximate), Expires: 05/24/2025 Start: 05-24-2024 End: 05-24-2025 Hepatitis C virus Ab [Presence] in Serum or Plasma by Immunoassay Hepatitis C antibody Lab Routine care, subsequent in first trimester Expected: 05/24/2024 (Approximate), Expires: 05/24/2025 [facility] Comment on above: Expected: 05/24/2024 (Approximate), Expires: 05/24/2025 Start: 05-24-2024 End: 05-24-2025 HIV-1/HIV-2 antigen/antibody combination immunoassay HIV-1 and HIV-2 antibodies Lab Routine care, subsequent in first trimester Expected: 05/24/2024 (Approximate), Expires: 05/24/2025 [facility] Comment on above: Expected: 05/24/2024 (Approximate), Expires: 05/24/2025 Start: 05-24-2024 End: 05-24-2025 Rpr (dx) w/refl titer and confirmatory testing Rpr (dx) w/refl titer and confirmatory testing Lab Routine care, subsequent in first trimester Expected: 05/24/2024 (Approximate), Expires: 05/24/2025 [facility] Comment on above: Expected: 05/24/2024 (Approximate), Expires: 05/24/2025 Start: 05-24-2024 End: 05-24-2025 Rubella antibody, IgG Rubella antibody, IgG Lab Routine care, subsequent in first trimester Expected: 05/24/2024 (Approximate), Expires: 05/24/2025 [facility] Comment on above: Expected: 05/24/2024 (Approximate), Expires: 05/24/2025 Start: 05-24-2024 End: 05-24-2025 Urinalysis complete panel - Urine Urinalysis with microscopic Lab Routine care, subsequent in first trimester Expected: 05/24/2024 (Approximate), Expires: 05/24/2025 [facility] Comment on above: Expected: 05/24/2024 (Approximate), Expires: 05/24/2025 Start: 05-16-2024 Influenza vaccination N [facility] Start: 01-24-2012 Screening for malign ant neoplasm of cervix Pap Smear [facility] Start: 2009 Adult BMI Screening Adult BMI Screen ing [facility] Start: 2003 Depression Screening Depression Scre ening [facility] Payers Date Payer Category Payer Private Health Insurance [employer] [id number] 2023 Unknown [employer] [id number] 2023-Present [address] [place] [address] [id number] 2019 Managed Care Other (unspecified) [employer] [id number] 2019 Unknown [id number] 1991 Unknown [id number] 2..840.1.179736.3.579.2. 1285 1991 Unknown [id number] 2..840.1.004143.3.579.2. 1285 1991 Unknown [id number] 2..840.1.928365.3.579.2. 1285 1991 Unknown [id number] 2.16.840.1.291623.3.579.2. 1285 1991 Unknown [id number] 2.16.840.1.908277.3.579.2. 1285 1991 Unknown [id number] 2.16.840.1.664026.3.579.2. 1258 1991 Unknown [id number] 2.16.840.1.876488.3.579.2. 1258 1991 Unknown [id number] 2.16.840.1.175129.3.579.2. 1258 1991 Unknown [id number] 2.16.840.1.094292.3.579.2. 1258 1991 Unknown [id number] 2.16.840.1.024501.3.579.2. 1258 1991 Unknown [id number] 2.16.840.1.776457.3.579.2. 1258 1991 Unknown [id number] 2.16.840.1.132160.3.579.2. 1258 1991 Unknown [id number] 2.16.840.1.998413.3.579.2. 1258 1991 Unknown [id number] 2.16.840.1.900070.3.579.2. 1258 1991 Unknown [id number] 2.16.840.1.451390.3.579.2. 1258 1991 Unknown [id number] 2.16.840.1.019219.3.579.2. 1258 1991 Unknown [id number] 2.16.840.1.007579.3.579.2. 1258 1991 Unknown [id number] 2.16.840.1.538884.3.579.2. 1258 1991 Unknown [id number] 2.16.840.1.845878.3.579.2. 1258 1991 Unknown [id number] 2.16.840.1.796824.3.579.2. 1259 Social History Date Type Detail Facility Start: 03-26-2023 End: 08-22-2023 Tobacco smoking status RIIS Never smoked tobacco [facility] Start: 03-26-2023 End: 08-22-2023 Tobacco use and exposure Smokeless tobacco non-user [facility] Start: 05-24-2024 End: 06-02-2024 Alcoholic beverage intake Ex-drinker (finding) [facility] Start: 10-26-2020 End: 06-02-2024 History of Social function [facility] Start: 10-26-2020 End: 06-02-2024 Tobacco use panel [facility] Start: 03-28-2023 Education [facility] Start: 05-24-2024 Alcohol Comment caffeine intak e : 1 cup coffee/daily [facility] Start: 05-03-2024 [facility] Start: 1990 Sex assigned at Not on file [facility] Start: 03-28-2023 Alcohol Comment caffeine intake : no ne [facility] Start: 08-22-2023 Alcoholic beverage intake Lifetime non-drinker (finding) [facility] Frequency of Alcohol Consumption Never [facility] Start: 04-20-2015 Sex Female (finding) [facility] Clinical Notes 05-14-2024 to 09-21-2024 Telephone Encounter - Shamika Coleman - 09/21/2024 3:58 PM ESTTelephone Encounter - Shamika Coleman - 09/21/2024 3:58 PM LAURA Doherty - 08/17/2024 10:00 AM EST Note Date & Type Note Facility 09-21-2024 Miscellaneous Notes Formattin g of this note might be different from the original. Patient contacted our office to schedule appointment, however, we have not received patients referral. Ortho Tech explained that in order to schedule we would need a referral, office notes and a updated demographics sheet. Ortho Tech also gave patient the referrals fax number of [phone]. Patient was understanding. Please advise documented in this encounter [facility] 09-21-2024 Telephone encount er Note Patient contacted our office to schedule appointment, however, we have not received patients referral. Ortho Tech explained that in order to schedule we would need a referral, office notes and a updated demographics sheet. Ortho Tech also gave patient the referrals fax number of [phone]. Patient was understanding. Please advise [facility] 08-17-2024 History of Presen t illness Narrative Images from the original note were not included. HPI Med Refill Additional comments: Would like to discuss maybe getting a script for the Omeprazole d/t she has been taking the OTC for quite a while now and still has to take TUMS sometimes too Last edited by Chelsey Morales LPN on 08/17/2024 10:16 AM. Subjective Patient ID: Simi Garcia is a 34 y.o. female who presents for shoulder pain. Simi is present today for evaluation of left shoulder pain. She was seen for this back in May and was worked up for neck pain but she feels it is all in her left shoulder. Pain has been on and off. States 9 years ago she fell asleep on her 's arm and woke up with the left side of the back of her head was numb. CT was negative. Was given muscle relaxer and PT the pain went away. So since then if she felt the tightness, she would start the HEP again and the symptoms would resolve. 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 Pain radiates to armpit and left chest area. She feels it may be nerve pain. Denies any weakness of her left arm. Correcting her posture seems to help with the nerve pain. Continues to have pain between her spine and shoulder in her back. Did go to Chiropractor in January and February, was having N/T in left arm and the side of her face, whatever he did made that go away, but then started having pains in her chest and in her armpit. Has had trigger point injections from her Chiropractor before and that is what seemed to initially help. Current Outpatient Medications on File Prior to Visit Medication Sig Dispense Refill calcium carbonate (Os-Nestor) 1250 (500 Ca) MG chewable tablet Chew 1 tablet Daily As needed [DISCONTINUED] Multiple Vitamins-Minerals (HAIR SKIN AND NAILS FORMULA PO) [DISCONTINUED] omeprazole OTC (PriLOSEC OTC) 20 MG EC tablet Take 20 mg by mouth in the morning. Take before meals. Do not crush, chew, or split.. [DISCONTINUED] 27-1 MG tablet Take by mouth. No current facility-administered medications on file prior to visit. I have reviewed and reconciled the history and medication list with the patient today. No Known Allergies Social History Tobacco Use Smoking status: Never Smokeless tobacco: Never Vaping Use Vaping status: Never Used Substance Use Topics Alcohol use: Not Currently Comment: caffeine intake : 1 cup coffee/daily Drug use: Never Family History Problem Relation Name Age of Onset Diabetes Mother Lymphoma Father Seizures Sister Asperger's syndrome Sister Skin cancer Maternal Grandmother Other (thyroid tumor) Maternal Grandmother Diabetes Maternal Grandfather Hypertension Maternal Grandfather Heart disease Maternal Grandfather had quad bypass Thyroid disease Mother's Sister Past Medical History: Diagnosis Date Hx of abnormal cervical Pap smear 2013 ASCUS, HPV neg Missed 10/01/2016 Seasonal allergies Varicella zoster Past Surgical History: Procedure Laterality Date DILATION AND CURETTAGE OF UTERUS 09/2016 VAGINAL DELIVERY x2 WISDOM TOOTH EXTRACTION Visit Vitals BP 126/84 Pulse 77 Resp 16 Ht 5' 4 Wt 142 lb 6.4 oz SpO2 99% BMI 24.44 kg/m OB Status Recent Smoking Status Never BSA 1.71 m Review of Systems Constitutional: Negative for chills, fatigue and fever. Respiratory: Negative for cough, shortness of breath and wheezing. Cardiovascular: Negative for chest pain, palpitations and leg swelling. Gastrointestinal: Negative for abdominal pain, constipation, diarrhea, nausea and vomiting. Reflux Musculoskeletal: Positive for arthralgias. Skin: Negative for rash. Objective Physical Exam Constitutional: General: She is not in acute distress. Appearance: Normal appearance. She is well-developed. HENT: Head: Normocephalic and atraumatic. Eyes: General: No scleral icterus. Conjunctiva/sclera: Conjunctivae normal. Cardiovascular: Rate and Rhythm: Normal rate and regular rhythm. Heart sounds: Normal heart sounds. No murmur heard. Pulmonary: Effort: Pulmonary effort is normal. No respiratory distress. Breath sounds: Normal breath sounds. No wheezing, rhonchi or rales. Musculoskeletal: Left shoulder: Tenderness present. No deformity or bony tenderness. Normal range of motion. Normal strength. Normal pulse. Arms: Comments: Speeds, Lift Off, Empty Can, SLAP, Cross Arm testing all negative. Strength intact and symmetric BUE. Tender over left trapezius muscle with spasms in area noted in drawing. Skin: General: Skin is warm and dry. Neurological: General: No focal deficit present. Mental Status: She is alert and oriented to person, place, and time. Sensory: No sensory deficit. Motor: No weakness. Psychiatric: Mood and Affect: Mood normal. Behavior: Behavior normal. Assessment/Plan Diagnoses and all orders for this visit: Chronic left shoulder pain - Ambulatory referral to Pain Medicine; Future Continue routine stretches/exercises. Avoid activities that aggravate symptoms. Gastroesophageal reflux disease without esophagitis - pantoprazole (Protonix) 40 MG EC tablet; Take 1 tablet (40 mg) by mouth in the morning. Take before meals. Do not crush, chew, or split. Take for two weeks at a time as needed. Omeprazole ineffective for pt. Will have her take Pantoprazole for 14 days, then as needed. Rotator cuff appears intact based on today's exam findings. Will hold off on additional imaging at this time. Spasm of left trapezius muscle - baclofen (Lioresal) 10 MG tablet; Take 1 tablet (10 mg) by mouth 2 (two) times a day as needed for muscle spasms for up to 14 days - Ambulatory referral to Pain Medicine; Future Provided patient with referral to Pain Management for possible trigger point injections, which has helped patient in past, but the chiropractor did not feel comfortable doing more in the areas she needed to be treated. Start Baclofen as needed for muscle spasm, cautioned it may cause drowsiness. Try topical muscle rub, ie Jake, Blue Emu, Biofreeze, ETC. Gentle massage as needed. Miscarriage Patient states it has been difficult, but she is coping well overall. Good support system. Continue to f/up with OB per their instruction. Follow up if symptoms worsen or fail to improve. documented in this encounter [facility] 06-28-2024 History of Presen t illness Narrative Physical Therapy Treatment Visit Patient Name: Simi Garcia Today's Date: 06/28/2024 Encounter Diagnoses Name Primary? Cervical spine pain Yes Cervical pain Chronic scapular pain Cervical radiculopathy at C5 Visit number: 5 Timed Code Treatment Minutes: 53 minutes Total Treatment Time: 53 minutes Time In: 904 Time Out: 956 History: Pt. Presents to PT with c/c of left scapular pain. September she started working out and started having N/T in left UE. Sleeping well at night. Overhead press increases her pain. No N/T since discharged from chiropractor (). But did have N/T for 2 months. Denies MACARIO, lightness. Chiropractor tried dry needling which helped but now she feels shakiness in bilateral hands. Precautions: 6 week Subjective: Pt. Reports of slow progress, very very sore after last PT session. Pt. Reports she continues to feel she is having nerve pain. Pain: 10 Objective: PT Evaluation (06/09/24) Neck ROM: cervical ROM grossly WFL in all planes Shoulder ROM: WFL in all planes Joint: left C4/5/6 segment hypomobility present Flexibility: moderate left upper trapezius tightness Palpation: border of top of scapula Strength: scapula 4-/5, shoulder flexion 4/5, abduction 4/5 Treatment: PT evaluation ( minutes) Education: HEP education with demonstration, Educated on Eval Findings and POC Manual Therapy: (26 minutes) SOR, cervical distraction, UT stretching, cervical spine joint mobs, lateral PA mobs, Passive ROM, Joint mobilization, Soft Tissue Mobilization, Myofascial Release, Muscle Energy Technique, Neural Mobilization, Myofascial Cupping, Dry Needling, IASTM, and Scar mobilization Therapeutic Exercise: (14 minutes) exercises in grid; Strength, Endurance, Flexibility, ROM, HEP, Neural Mobilization, Power, and Core Stability Therapeutic Activity: Exercises to improve dynamic activities, functional tasks, functional mobility to return to prior activity level Neuromuscular re-education: (13 minutes) postural exercises; education, Balance Training, Muscle Facilitation, Dynamic Stability, Core Stabilization, and Blood Flow Restriction Training (BFRT) Modalities: Don't recommend, Heat, Ice, Electrical Stimulation, Ultrasound, Cervical Mechanical Traction 10 minutes, 20#/12# , Lumbar Mechanical Traction, Iontophoresis, and Fluidotherapy Assessment: Pt. Has participated in 5 PT session with start of POC on 06/09/24 for left scapular pain. Pt. Will benefit from skilled PT services. Trial of cervical mechanical traction today. Performed little manual techniques today. Continues to believe patient is have disc radiculopathy symptoms. Pt. Was instructed to continue resistance exercises for 2 more weeks them we will reevaluate. Pt on hold for one week with PT due to other issues. Outcome Measure: 80/80 UEFS Short Term Goal: To be met in 2 weeks Goal 1: Pt to be instructed in home exercise program. 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 Goal 2: Pt. Will report of 0/10 left scapular pain while performing daily tasks and work tasks to help improve her quality of life. Goal 3: Pt. Will demonstrate normal left upper trapezius muscle flexibility to help decrease pain. Goal 4: Pt. Will demonstrate normal left cervical spine joint mobility to help decrease pain and improve her functional mobility with daily tasks. Goal 5: Pt. Will demonstrate 5/5 scapular strength to help decrease pain. Pt will benefit from skilled PT for 1-2x/week from 06/09/24 to 08/18/24 to address the above impairments. I hereby deem this POC medically necessary. Please sign below. Date: documented in this encounter [facility] 06-23-2024 History of Presen t illness Narrative Physical Therapy Treatment Visit Patient Name: Simi Garcia Today's Date: 06/24/2024 Encounter Diagnoses Name Primary? Cervical spine pain Visit number: 4 Timed Code Treatment Minutes: 53 minutes Total Treatment Time: 53 minutes Time In: 1630 Time Out: 1723 History: Pt. Presents to PT with c/c of left scapular pain. September she started working out and started having N/T in left UE. Sleeping well at night. Overhead press increases her pain. No N/T since discharged from chiropractor (). But did have N/T for 2 months. Denies MACARIO, lightness. Chiropractor tried dry needling which helped but now she feels shakiness in bilateral hands. Precautions: 6 week Subjective: Pt. Reports she continues to have left scapular muscle soreness/pain. Compliant with HEP. Pain: 4/10 Objective: PT Evaluation (06/09/24) Neck ROM: cervical ROM grossly WFL in all planes Shoulder ROM: WFL in all planes Joint: left C4/5/6 segment hypomobility present Flexibility: moderate left upper trapezius tightness Palpation: border of top of scapula Strength: scapula 4-/5, shoulder flexion 4/5, abduction 4/5 Treatment: PT evaluation ( minutes) Education: HEP education with demonstration, Educated on Eval Findings and POC Manual Therapy: (26 minutes) SOR, cervical distraction, UT stretching, cervical spine joint mobs, lateral PA mobs, Passive ROM, Joint mobilization, Soft Tissue Mobilization, Myofascial Release, Muscle Energy Technique, Neural Mobilization, Myofascial Cupping, Dry Needling, IASTM, and Scar mobilization Therapeutic Exercise: (14 minutes) exercises in grid; Strength, Endurance, Flexibility, ROM, HEP, Neural Mobilization, Power, and Core Stability Therapeutic Activity: Exercises to improve dynamic activities, functional tasks, functional mobility to return to prior activity level Neuromuscular re-education: (13 minutes) postural exercises; education, Balance Training, Muscle Facilitation, Dynamic Stability, Core Stabilization, and Blood Flow Restriction Training (BFRT) Modalities: Don't recommend, Heat, Ice, Electrical Stimulation, Ultrasound, Cervical Mechanical Traction, Lumbar Mechanical Traction, Iontophoresis, and Fluidotherapy Assessment: Pt. Has participated in 4 PT session with start of POC on 06/09/24 for left scapular pain. Pt. Will benefit from skilled PT services. Increased left scapular trigger point. Performed extensive MFR to trigger point to help to improve muscle flexibility. Pt. Continues to demonstrates left UE muscle weakness. Outcome Measure: 80/80 UEFS Short Term Goal: To be met in 2 weeks Goal 1: Pt to be instructed in home exercise program. Fdc Goals: To be met in 10 weeks Goal 1: Pt to report independence and compliance with home program. Goal 2: Pt. Will report of 0/10 left scapular pain while performing daily tasks and work tasks to help improve her quality of life. Goal 3: Pt. Will demonstrate normal left upper trapezius muscle flexibility to help decrease pain. Goal 4: Pt. Will demonstrate normal left cervical spine joint mobility to help decrease pain and improve her functional mobility with daily tasks. Goal 5: Pt. Will demonstrate 5/5 scapular strength to help decrease pain. Pt will benefit from skilled PT for 1-2x/week from 06/09/24 to 08/18/24 to address the above impairments. I hereby deem this POC medically necessary. Please sign below. Date: documented in this encounter [facility] 06-16-2024 History of Presen t illness Narrative Images from the original note were not included. Keri Riley D.O. Obstetrics and Gynecology Patient: Simi Garcia : 1990 (34 y.o.) Exam Date: 06/16/2024 Reason for Visit - Chief Complaint Patient presents with Follow-up Pt presents for follow up from US Visit Vitals [facility] 04/19/2024 OB Status Recent Smoking Status Never No Known Allergies History of Present Illness, Associated Treatments and Results - OB History Para Term AB Living 4 2 2 0 2 2 SAB IAB Ectopic Multiple Live Births 2 0 0 0 2 # Outcome Date GA Lbr Brendan/2nd Weight Sex Type Anes PTL Lv 4 SAB 06/16/24 8w2d 3 Term 01/26/22 38w0d 7 lb 5 oz F Vag-Spont MARGARET 2 Term 03/01/19 37w4d 12 oz F Vag-Spont 1 2016 Review of Systems - Const: Denies appetite change, fever, chills. Allergy: Denies medication reaction. Ocular: Denies visual acuity change. ENT: Denies hearing change. Endoc: Denies weight loss. Resp: Denies dyspnoea, wheezing. Cardiac: Denies angina, palpitations. GI: Denies nausea, vomiting. Haem: Denies bleeding. : Denies incontinence. MSK: Denies arthralgias, joint oedema. Derm: Denies rash, hair loss. Neuro: Denies ataxia, tremor. Also see HPI for elements of ROS documented therein and for details of positive findings, which shall supersede the foregoing. Medication Documentation Review Audit Reviewed by Chelsey Morales LPN (Licensed Nurse) on 06/02/24 at 1138 Medication Order Taking? Sig Documenting Provider Last Dose Status Multiple Vitamins-Minerals (HAIR SKIN AND NAILS FORMULA PO) [id number] Millie Franco DO Active 27-1 MG tablet [id number] No Take by mouth. Historical Provider, Taking Active Past Medical History: Diagnosis Date Hx of abnormal cervical Pap smear 2013 ASCUS, HPV neg Missed 10/01/2016 Seasonal allergies Varicella zoster Past Surgical History: Procedure Laterality Date DILATION AND CURETTAGE OF UTERUS 09/2016 VAGINAL DELIVERY x2 WISDOM TOOTH EXTRACTION Family History Problem Relation Name Age of Onset Diabetes Mother Lymphoma Father Seizures Sister Asperger's syndrome Sister Skin cancer Maternal Grandmother Other (thyroid tumor) Maternal Grandmother Diabetes Maternal Grandfather Hypertension Maternal Grandfather Heart disease Maternal Grandfather had quad bypass Thyroid disease Mother's Sister Physical Exam - General appearance, mentation, extraocular movements, facial strength and movement, hearing, upper and lower extremity strength and tone, sensation to gross testing, coordination, and gait are normal or at baseline unless noted below. General: Alert, cooperative, no distress, appears stated age Head: Normocephalic, without obvious abnormality, atraumatic Eyes: sclera anicteric Ears: no obvious hearing deficit Skin: Warm and dry Heart: Regular rate Lungs: Respirations unlabored Abdomen: Soft, non-tender, no masses, no organomegaly Extremities normal, atraumatic, no cyanosis or edema Neurologic: alert and oriented Psych: cooperative with exam Diagnoses and all orders for this visit: Miscarriage Reviewed OB US at length with patient and spouse. Findings consistent with 7 week miscarriage, no cardiac activity- by dates patient should be 8 weeks. Reviewed options with patient- watchful waiting, Cytotec, and suction D&C. Patient has had suction D&C in the past with first miscarriage. Patient is uncertain at this time. Will call back with decision. ICD-10-CM 1. Miscarriage O03.9 documented in this encounter [facility] 06-16-2024 History of Presen t illness Narrative Physical Therapy Treatment Visit Patient Name: Simi Garcia Today's Date: 06/16/2024 Encounter Diagnoses Name Primary? Cervical pain Yes Chronic scapular pain Cervical radiculopathy at C5 Visit number: 3 Timed Code Treatment Minutes: 40 minutes Total Treatment Time: 40 minutes Time In: 1030 Time Out: 1110 History: Pt. Presents to PT with c/c of left scapular pain. September she started working out and started having N/T in left UE. Sleeping well at night. Overhead press increases her pain. No N/T since discharged from chiropractor (). But did have N/T for 2 months. Denies MACARIO, lightness. Chiropractor tried dry needling which helped but now she feels shakiness in bilateral hands. Precautions: 6 week Subjective: Pt. Reports of headache all day yesterday due to weather. Neck soreness today. Pain: 11/22 Objective: PT Evaluation (06/09/24) Neck ROM: cervical ROM grossly WFL in all planes Shoulder ROM: WFL in all planes Joint: left C4/5/6 segment hypomobility present Flexibility: moderate left upper trapezius tightness Palpation: border of top of scapula Strength: scapula 4-/5, shoulder flexion 4/5, abduction 4/5 Treatment: PT evaluation ( minutes) Education: HEP education with demonstration, Educated on Eval Findings and POC Manual Therapy: (16 minutes) SOR, cervical distraction, UT stretching, cervical spine joint mobs, lateral PA mobs, Passive ROM, Joint mobilization, Soft Tissue Mobilization, Myofascial Release, Muscle Energy Technique, Neural Mobilization, Myofascial Cupping, Dry Needling, IASTM, and Scar mobilization Therapeutic Exercise: (14 minutes) exercises in grid; Strength, Endurance, Flexibility, ROM, HEP, Neural Mobilization, Power, and Core Stability Therapeutic Activity: Exercises to improve dynamic activities, functional tasks, functional mobility to return to prior activity level Neuromuscular re-education: (10 minutes) postural exercises; education, Balance Training, Muscle Facilitation, Dynamic Stability, Core Stabilization, and Blood Flow Restriction Training (BFRT) Modalities: Don't recommend, Heat, Ice, Electrical Stimulation, Ultrasound, Cervical Mechanical Traction, Lumbar Mechanical Traction, Iontophoresis, and Fluidotherapy Assessment: Pt. Has participated in 3 PT session with start of POC on 06/09/24 for left scapular pain. Pt. Will benefit from skilled PT services. Pt. Demonstrate C5 radiculopathy symptoms resulting in left scapular pain. Muscle soreness after last PT session, pt. Continues to demonstrate left cervical paraspinal muscle tightness, less pain over rhomboid muscle. Progressing slowly toward PT goals. Outcome Measure: 80/80 UEFS Short Term Goal: To be met in 2 weeks Goal 1: Pt to be instructed in home exercise program. 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 Goal 2: Pt. Will report of 0/10 left scapular pain while performing daily tasks and work tasks to help improve her quality of life. Goal 3: Pt. Will demonstrate normal left upper trapezius muscle flexibility to help decrease pain. Goal 4: Pt. Will demonstrate normal left cervical spine joint mobility to help decrease pain and improve her functional mobility with daily tasks. Goal 5: Pt. Will demonstrate 5/5 scapular strength to help decrease pain. Pt will benefit from skilled PT for 1-2x/week from 06/09/24 to 08/18/24 to address the above impairments. I hereby deem this POC medically necessary. Please sign below. Date: documented in this encounter [facility] 06-14-2024 History of Presen t illness Narrative Physical Therapy Treatment Visit Patient Name: Simi Garcia Today's Date: 06/14/2024 Encounter Diagnoses Name Primary? Cervical pain Yes Chronic scapular pain Cervical radiculopathy at C5 Visit number: 2 Timed Code Treatment Minutes: 40 minutes Total Treatment Time: 40 minutes Time In: 0705 Time Out: 744 History: Pt. Presents to PT with c/c of left scapular pain. September she started working out and started having N/T in left UE. Sleeping well at night. Overhead press increases her pain. No N/T since discharged from chiropractor (). But did have N/T for 2 months. Denies MACARIO, lightness. Chiropractor tried dry needling which helped but now she feels shakiness in bilateral hands. Precautions: 6 week Subjective: Pt. Reports of soreness after last PT session. Compliant with HEP. Pain: 0/10; 2-3/10 Objective: PT Evaluation (06/09/24) Neck ROM: cervical ROM grossly WFL in all planes Shoulder ROM: WFL in all planes Joint: left C4/5/6 segment hypomobility present Flexibility: moderate left upper trapezius tightness Palpation: border of top of scapula Strength: scapula 4-/5, shoulder flexion 4/5, abduction 4/5 Treatment: PT evaluation ( minutes) Education: HEP education with demonstration, Educated on Eval Findings and POC Manual Therapy: (16 minutes) SOR, cervical distraction, UT stretching, cervical spine joint mobs, lateral PA mobs, Passive ROM, Joint mobilization, Soft Tissue Mobilization, Myofascial Release, Muscle Energy Technique, Neural Mobilization, Myofascial Cupping, Dry Needling, IASTM, and Scar mobilization Therapeutic Exercise: (14 minutes) exercises in grid; Strength, Endurance, Flexibility, ROM, HEP, Neural Mobilization, Power, and Core Stability Therapeutic Activity: Exercises to improve dynamic activities, functional tasks, functional mobility to return to prior activity level Neuromuscular re-education: (10 minutes) postural exercises; education, Balance Training, Muscle Facilitation, Dynamic Stability, Core Stabilization, and Blood Flow Restriction Training (BFRT) Modalities: Don't recommend, Heat, Ice, Electrical Stimulation, Ultrasound, Cervical Mechanical Traction, Lumbar Mechanical Traction, Iontophoresis, and Fluidotherapy Assessment: Pt. Has participated in 2 PT session with start of POC on 06/09/24 for left scapular pain. Pt. Will benefit from skilled PT services. Pt. Demonstrate C5 radiculopathy symptoms resulting in left scapular pain. Added weight to exercises and scapular band resistance exercises, pt. Tolerated well. Outcome Measure: 80/80 UEFS Short Term Goal: To be met in 2 weeks Goal 1: Pt to be instructed in home exercise program. 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 Goal 2: Pt. Will report of 0/10 left scapular pain while performing daily tasks and work tasks to help improve her quality of life. Goal 3: Pt. Will demonstrate normal left upper trapezius muscle flexibility to help decrease pain. Goal 4: Pt. Will demonstrate normal left cervical spine joint mobility to help decrease pain and improve her functional mobility with daily tasks. Goal 5: Pt. Will demonstrate 5/5 scapular strength to help decrease pain. Pt will benefit from skilled PT for 1-2x/week from 06/09/24 to 08/18/24 to address the above impairments. I hereby deem this POC medically necessary. Please sign below. Date: documented in this encounter [facility] 06-02-2024 History of Presen t illness Narrative Images from the original note were not included. Subjective Patient ID: Simi Garcia is a 34 y.o. female who presents to [facility]. Simi is present today to become established. She does have left cervical pain. Started about 9 yrs ago, she slept wrong one night and woke up with the neck pain, she has went through PT and it helped. 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 Chiropractor also did xrays in his office and everything was fine. She is afraid to go back to chiropractor d/t the shakiness now. She is currently 6 weeks . Denies any previous neck injuries. 9 years ago slept weird and started having neck issues with tingling going up into the back of her head. Normally just does the stretches that she learned in PT and her symptoms go away. Since September however, her symptoms seem to have not gone away. Has been working out regularly. Great grandlaura had ALS, but no other significant family history of neurologic issues. Drinks about 60 ounces of water a day. Eats three meals a day with snacks throughout the day. Current Outpatient Medications on File Prior to Visit Medication Sig Dispense Refill Multiple Vitamins-Minerals (HAIR SKIN AND NAILS FORMULA PO) 27-1 MG tablet Take by mouth. No current facility-administered medications on file prior to visit. I have reviewed and reconciled the history and medication list with the patient today. No Known Allergies Social History Tobacco Use Smoking status: Never Smokeless tobacco: Never Vaping Use Vaping status: Never Used Substance Use Topics Alcohol use: Not Currently Comment: caffeine intake : 1 cup coffee/daily Drug use: Never Family History Problem Relation Name Age of Onset Diabetes Mother Lymphoma Father Seizures Sister Asperger's syndrome Sister Skin cancer Maternal Grandmother Other (thyroid tumor) Maternal Grandmother Diabetes Maternal Grandfather Hypertension Maternal Grandfather Heart disease Maternal Grandfather had quad bypass Thyroid disease Mother's Sister Past Medical History: Diagnosis Date Hx of abnormal cervical Pap smear 2013 ASCUS, HPV neg Missed 10/01/2016 Seasonal allergies Varicella zoster Past Surgical History: Procedure Laterality Date DILATION AND CURETTAGE OF UTERUS 09/2016 VAGINAL DELIVERY x2 WISDOM TOOTH EXTRACTION Visit Vitals BP 122/82 Pulse 79 Resp 16 Ht 5' 4 Wt 140 lb 3.2 oz LMP 04/19/2024 SpO2 96% BMI 24.07 kg/m OB Status Smoking Status Never BSA 1.69 m Review of Systems Constitutional: Negative for chills, fatigue and fever. Respiratory: Negative for cough, shortness of breath and wheezing. Cardiovascular: Negative for chest pain, palpitations and leg swelling. Gastrointestinal: Negative for abdominal pain, constipation, diarrhea, nausea and vomiting. Musculoskeletal: Positive for neck pain. Skin: Negative for rash. Objective Physical Exam Constitutional: General: She is not in acute distress. Appearance: Normal appearance. She is well-developed. HENT: Head: Normocephalic and atraumatic. Eyes: General: No scleral icterus. Conjunctiva/sclera: Conjunctivae normal. Cardiovascular: Rate and Rhythm: Normal rate and regular rhythm. Heart sounds: Normal heart sounds. No murmur heard. Pulmonary: Effort: Pulmonary effort is normal. No respiratory distress. Breath sounds: Normal breath sounds. No wheezing, rhonchi or rales. Musculoskeletal: Cervical back: Torticollis (Mild tilt to right) present. No rigidity, spasms, tenderness, bony tenderness or crepitus. Deformity: Slight tilt to right.No pain with movement. Normal range of motion. Skin: General: Skin is warm and dry. Neurological: General: No focal deficit present. Mental Status: She is alert and oriented to person, place, and time. Cranial Nerves: No cranial nerve deficit. Sensory: No sensory deficit. Motor: No weakness. Gait: Gait normal. Deep Tendon Reflexes: Reflexes normal. Psychiatric: Mood and Affect: Mood normal. Behavior: Behavior normal. Assessment/Plan Diagnoses and all orders for this visit: Cervical spine pain - Ambulatory referral to Physical Therapy; Future Neurologically pt is intact at this time. No significant weakness or paresthesias noted on exam. PT has been helpful for pt in the past. Provided pt with referral to PT evaluate and treat her neck discomfort. May need to pursue x-rays in the future after current has come to term if she continues to have symptoms. Fine tremor Discussed potential etiologies with pt. Further work up can be initiated if relief not obtained through PT. Follow up in about 1 year (around 06/02/2025) for Wellness. documented in this encounter [facility] 05-24-2024 History of Presen t illness Narrative Name: Simi Garcia Date/Time of Service:05/24/2024 1:31 PM :1990 Age: 34 y.o. Chief Complaint Chief Complaint Patient presents with Initial Visit Simi Garcia is a 34 y.o. at 5w0d with a working estimated date of delivery of 01/24/2025, by Last Menstrual Period who presents for an initial visit. OB History Para Term AB Living 4 2 2 0 1 2 SAB IAB Ectopic Multiple Live Births 1 0 0 0 2 # Outcome Date GA Lbr Brendan/2nd Weight Sex Type Anes PTL Lv 4 Current 3 Term 01/26/22 38w0d 7 lb 5 oz F Vag-Spont MARGARET 2 Term 03/01/19 37w4d 12 oz F Vag-Spont 1 SAB 2016 Past Medical / Surgical History Past Medical History: Diagnosis Date Hx of abnormal cervical Pap smear 2013 ASCUS, HPV neg Missed 10/01/2016 Seasonal allergies Varicella zoster Past Surgical History: Procedure Laterality Date DILATION AND CURETTAGE OF UTERUS 09/2016 VAGINAL DELIVERY x2 WISDOM TOOTH EXTRACTION Family History Family History Problem Relation Name Age of Onset Diabetes Mother Lymphoma Father Seizures Sister Asperger's syndrome Sister Skin cancer Maternal Grandmother Other (thyroid tumor) Maternal Grandmother Diabetes Maternal Grandfather Hypertension Maternal Grandfather Heart disease Maternal Grandfather had quad bypass Thyroid disease Mother's Sister Social History reports that she has never smoked. She has never used smokeless tobacco. She reports that she does not currently use alcohol. She reports that she does not use drugs. Social History Tobacco Use Smoking Status Never Smokeless Tobacco Never MEDICATIONS: Current Outpatient Medications on File Prior to Visit Medication Sig Dispense Refill Multiple Vitamins-Minerals (HAIR SKIN AND NAILS FORMULA PO) 27-1 MG tablet Take by mouth. No current facility-administered medications on file prior to visit. Allergies No Known Allergies Patient reports no nausea and no vomiting. Discussed smaller meals, alysa products, OTC Vitamin B6 50mg BID and Unisom 25mg BID Patient reports taking daily vitamin. Genetic and Chromosomal testing discussed. Last PAP: 03/26/23 WNL ASSESSMENT / PLAN Labs Ordered. Patient handed printed copy of orders to take to [facility] to have labs drawn today. Appointments scheduled for OBUS 06/16 and with KER 07/0605/24/2024 1:31 PM documented in this encounter [facility] 05-14-2024 Miscellaneous Notes Formattin g of this note might be different from the original. Patient lvm to have someone give her a call back. documented in this encounter [facility] 05-14-2024 Telephone encount er Note Patient lvm to have someone give her a call back. [facility] Evaluation note Diagnosis Cervical pain- Primary Cervicalgia Chronic scapular pain Cervical radiculopathy at C5 [facility]* Diagnosis Miscarriage Unspecified spontaneous without mention of complication [facility] Diagnosis Cervical spine pain- Primary [facility]* Diagnosis Cervical spine pain- Primary Cervical pain Cervicalgia Chronic scapular pain Cervical radiculopathy at C5 [facility]* Diagnosis Cervical spine pain- Primary Cervical pain Cervicalgia Chronic scapular pain Cervical radiculopathy at C5 [facility]* Diagnosis Chronic left shoulder pain- Primary Pain in joint, shoulder region Gastroesophageal reflux disease without esophagitis Esophageal reflux Spasm of left trapezius muscle Miscarriage Unspecified spontaneous without mention of complication [facility]* Diagnosis Cervical spine pain- Primary Fine tremor Abnormal involuntary movements [facility]* Diagnosis care, subsequent in first trimester Encounter for drug screening [facility]* Diagnosis Cervical pain- Primary Cervicalgia Chronic scapular pain Cervical radiculopathy at C5 documented [facility] this encounter [facility] HealthcareInstructionsNot on filedocumented in this encounterSelect [facility] SystemReason for visit Narrative* Consultation (Routine) - Authorized Specialty Diagnoses / Procedures Referred By Cornel elias Referred To Contact Physical Therapy Diagnoses Cervical spine pain Procedures CO OFFICE/OUTPATIENT [facility] 60 MINUTES Shwetha Patricio PA [address] [facility] [address] [place] [address] Kavya Fonseca, PT [address] [facility] [address] [place] [address] Referral ID Status Reason Start Date Expiration Date Visits Requested Visits Authorized [id number] Authorized Consult and Treat 06/03/2024 11/30/2024 40 40 [facility] Consultation (Routine) - Authorized Specialty Diagnoses / Procedures Referred By Contac t Referred To Contact Physical Therapy Diagnoses Cervical spine pain Procedures CO OFFICE/OUTPATIENT [facility] 60 MINUTES Shwetha Patricio PA [address] [facility] [address] [place] [address] Phone: tel: fax: Marian Kavya T, PT [address] [facility] [address] [place] [address] Phone: tel: fax: Referral ID Status Reason Start Date Expiration Date Visits Requested Visits Authorized [id number] Authorized Consult and Treat 06/03/2024 11/30/2024 40 40 [facility] Summary Purpose Family History No Family History Records FoundNo Family History Records FoundNo Family History Records Found Advance Directives No Advanced Directives Records FoundNo Advanced Directives Records FoundNo Advanced Directives Records Found Reason for Referral Specialty Diagnoses / Procedures Referred By Contac t Referred To Contact Physical Therapy Diagnoses Cervical spine pain Procedures CO OFFICE/OUTPATIENT [facility] 60 MINUTES Shwetha Patricio PA [address] [facility] [address] [place] [address] Dixon Alba, PT [address] [place] [address] Referral ID Status Reason Start Date Expiration Date Visits Requested Visits Authorized [id number] Pending Review Specialty Services Required 06/02/2024 11/29/2024 1 1 Additional Source Comments INFORMATION SOURCE (unrecogn ized section and content) DATE CREATED AUTHOR 04/25/2022 [facility] DATE CREATED AUTHOR AUTHOR'S ORGANIZ ATION 08/11/2024 [facility] DATE CREATED AUTHOR AUTHOR'S ORGANIZ ATION 08/19/2024 [facility] dical Specialists EPIC Care Teams (unrecognized sec tion and content) 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 Relationship Specialty Start Date End Date Yong Lu APRN-IRON POURER [address] [facility] [address] [place] [address] PCP - Medical [place] [employer] 09/15/15 09/14/99 Caroline Sher MD [address] [place] [address] [place] [address] PCP - General Family Medicine 06/10/24 Shwetha Patricio PA [address] [place] [address] [place] [address] Physician Lobby Concierge Family Medicine 06/10/24 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 Relationship Specialty Start Date End Date Yong Lu APRN-IRON POURER [address] [place] [address] [place], [place] [id number] PCP - Medical [place] [employer] 09/15/15 09/14/99 Caroline Sher MD [address] [place] [address] [place] [address] PCP - General Family Medicine 06/10/24 Shwetha Patricio PA [address] [place] [address] Physician Lobby Concierge Family Medicine 06/10/24 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 Relationship Specialty Start Date End Date Yong Lu APRNIRON POURER [address] [place] [address] [place] [address] PCP - Medical [place] [employer] 09/15/15 09/14/99 Caroline Sher MD [address] [place] [address] PCP - General Family Medicine 06/10/24 Shwetha Patricio PA [address] [place] [address] Physician Lobby Concierge Family Medicine 06/10/24 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 Relationship Specialty Start Date End Date Yong Lu APRN-IRON POURER [address] [place] [address] [place] [address] PCP - Medical [place] [employer] 09/15/15 09/14/99 Caroline Sher MD [address] [place] [address] PCP - General Family Medicine 06/10/24 Shwetha Patricio PA [address] [place] [address] Physician Lobby Concierge Family Medicine 06/10/24 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 Relationship Specialty Start Date End Date Yong Lu, CAR TESTER-IRON POURER [address] [place] [address] [place] [address] PCP - Medical [place] [employer] 09/15/15 09/14/99 Caroline Sher MD [address] [place] [address] PCP - General Family Medicine 06/10/24 Shwetha Patricio PA [address] [place] [address] Physician Lobby Concierge Family Medicine 06/10/24 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 Relationship Specialty Start Date End Date Yong Lu, CAR TESTER-IRON POURER [address] [place] [address] [place] [address] PCP - Medical [place] [employer] 09/15/15 09/14/99 Caroline Sher MD [address] [place] [address] [place] [address] PCP - General Family Medicine 06/10/24 Shwetha Patricio PA [address] [place] [address] Physician Lobby Concierge Family Medicine 06/10/24 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 Relationship Specialty Start Date End Date Yong LuMATN-IRON POURER [address] [place] [address] [place] [address] PCP - Medical [place] [employer] 09/15/15 09/14/99 Caroline Sher MD [address] [place] [address] [place] [address] PCP - General Family Medicine 06/10/24 Shwetha Patricio PA [address] [place] [address] Physician Lobby Concierge Family Medicine 06/10/24 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 Relationship Specialty Start Date End Date Caroline Sher MD [address] [place] [address] PCP - General Family Medicine 06/10/24 Shwetha Patricio PA [address] [place] [address] PCP - Medical [place] [employer] 09/15/15 09/14/99 Shwetha Patricio PA [address] [place] [address] Physician Lobby Concierge Family Medicine 06/10/24 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 Relationship Specialty Start Date End Date Caroline Sher MD [address] [place] [address] PCP - General Family Medicine 06/10/24 Shwetha Patricio PA [address] [place] [address] PCP - Medical [place] [employer] 09/15/15 09/14/99 Shwetha Patricio PA [address] [facility] [address] [place] [address] Physician Lobby Concierge Family Medicine 06/10/24 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 Relationship Specialty Start Date End Date Unallocated, Anamaria Heath MD [address] [place] [address] PCP - General 03/26/23 Yong Lu, CAR TESTER-IRON POURER [address] [place] [address] [place] [address] PCP - Medical [place] [employer] 09/15/15 09/14/99 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 Relationship Specialty Start Date End Date Unallocated, Anamaira Heath MD [address] [facility] [place] [address] PCP - General 03/26/23 Yong Lu, CAR TESTER-IRON POURER [address] [place] [address] [place] [address] PCP - Medical [place] [employer] 09/15/15 09/14/99 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 Relationship Specialty Start Date End Date Unallocated, Anamaria Heath MD [address] [place] [address] PCP - General 03/26/23 Yong Lu, CAR TESTER-IRON POURER [address] [place] [address] [place] [address] PCP - Medical [place] [employer] 09/15/15 09/14/99 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 Relationship Specialty Start Date End Date Unallocated, Anamaria Heath MD [address] [place] [address] PCP - General 03/26/23 Yong Lu, CAR TESTER-IRON POURER [address] [place] [address] [place] [address] PCP - Medical [place] [employer] 09/15/15 09/14/99 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 Relationship Specialty Start Date End Date Unallocated, Noms MD Ivana [address] [place] [address] PCP - General 03/26/23 Yong Lu, CAR TESTER-[facility] [address] [place] [address] PCP - Medical [place] [employer] 09/15/15 09/14/99 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 Relationship Specialty Start Date End Date Yong Lu, CAR TESTER-[facility] [address] [place] [address] PCP - Medical [place] [employer] 09/15/15 09/14/99 Caroline Sher MD [address] [place] [address] PCP - General Family Medicine 06/10/24 Shwetha Patricio PA [address] [place] [address] Physician Lobby Concierge Family Medicine 06/10/24 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 Relationship Specialty Start Date End Date Yong Lu, CAR TESTER-IRON POURER [address] [place] [address] PCP - Medical [place] [employer] 09/15/15 09/14/99 Caroline Sher MD [address] [place] [address] PCP - General Family Medicine 06/10/24 Shwetha Patricio PA [address] [place] [address] Physician Lobby Concierge Family Medicine 06/10/24 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 Relationship Specialty Start Date End Date Unallocated, Noms Provider, [address] [place] [place], [place] [id number] PCP - General 03/26/23 Yong Lu, CAR TESTER-IRON POURER [address] [place] [address] PCP - Medical [place] [employer] 09/15/15 09/14/99 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 Relationship Specialty Start Date End Date No Pcp, [place] [address] PCP - General Family Medicine 08/02/24 Reason for Visit (unrecogniz ed section and content) Reason Comments Follow-up Pt presents for f[place] Reason Comments Med Refill Would like to discus s maybe getting a script for the Omeprazole d/t she has been taking the OTC for quite a while now and still has to take TUMS sometimes too Reason Comments Initial Visit Reason Onset Date Comments referral 09/21/2024 FOR RECORDS PERTAINING TO PATIENTS WHO ARE OR HAVE BEEN ENROLLED IN A CHEMICAL DEPENDENCY/SUBSTANCEABUSE PROGRAM, SOME INFORMATION MAY BE OMITTED. This clinical summary was aggregated from multiple sources. Caution should be exercised in using it in the provision of clinical care. This summary normalizes information from multiple sources, and as a consequence, information in this document may materially change the coding, format and clinical context of patient data. In addition, data may be omitted in some cases. CLINICAL DECISIONS SHOULD BE BASED ON THE PRIMARY CLINICAL RECORDS. [employer] provides no warranty or guarantee of the accuracy or completeness of information in this document.
[2024-09-27 09:01] VITALS: BP 136/67; BP 160/72; PULSE 91; PULSE 98; O2SAT 98
[2024-09-27] MEDS: BUPIVACAINE HCL 0.25% PF 25 MG/10 ML VIAL INJ (09:02)
[2024-09-27] MEDS: LIDOCAINE HCL 2% 400 MG/20 ML MDV 3 ML INJ (09:02)
[2024-09-27] MEDS: IOHEXOL 240 MG/ML - 10 ML VIAL 24 MG INJ (09:02)
[2024-09-27] MEDS: DEXAMETHASONE SOD PHOS 10 MG/ML VIAL INJ (09:02)
--- NOTE | 2024-09-27 09:06 | P.ON_ITS ---
Date of procedure: 09/27/24 Pre-op diagnosis: Pain due to cervical radiculopathy Post-op diagnosis: same as pre-op Procedure: Procedure: Left C5-6, 6-7 transforaminal epidural steroid injection Medications: Bupivacaine 0.25% 1cc, lidocaine 2% 1cc, dexamethasone 10mg The patient was seen and examined in the preoperative holding area.? Informed consent was obtained and placed on the chart.? Patient was brought to the medical procedure unit and placed in the prone position where a timeout was completed verifying the correct patient, procedure site, position, and planned special equipment using sterile aseptic technique.? Under direct fluoroscopic visualization a 25-gauge Quincke tipped spinal needle was advanced to the designated neural foramen where contrast dye was injected to show adequate spread.? The needle was inserted at level left C5-6. There was no evidence of v ascular or adverse uptake.? Epidural spread was appreciated.? The above- mentioned injectate was then placed in a 1.5 mL aliquot preceded by negative aspiration.? The needle was removed. The needle was inserted and the procedure repeated at level left C6-7.? The surgery site was covered.? Patient was taken to the postprocedural recovery area and monitored for an appropriate length of time before found suitable for discharge in the accompaniment of a responsible adult. Anesthesia: Local Surgeon: Agustin Pérez Pathology: none sent Condition: stable Disposition: no change
== END 2024-09-27 09:09 | disposition home or self-care (01) ==
PROVIDERS: PCP Physician Assistant; Visit Provider Anesthesiology
DX: M54.12 Radiculopathy, cervical region (principal)
CPT/HCPCS: 64479; 64480; J0665; J1100; Q9966

== ENCOUNTER 2024-10-06 15:03 | Outpatient (OUT) | payer OTHER, SELFPAY ==
--- OUTSIDE RECORDS SUMMARY | 2024-10-06 15:11 | XMS_ITS | CCD ---
Author Organization [facility] CliniSyal Care Team Providers Care Laboratory Tester Name Role Phone Yong Moraes Unavailable [phone] Caroline Sher MD Primary Care Provider [phone] Shwetha Murcia Unavailable SHWETHA PATRICIO Referring Unavailable NO PCP, NO PCP Primary Care Unavailable SOLEDAD KNIGHT Referring Unavailable NO PCP, NO PCP Primary Care Unavailable KERI RILEY Referring Unavailable KERI RILEY Referring Unavailable KERRY FRANCOA Referring Unavailable SERVICES, [facility] Primary Care Unava ilable Shwetha Murcia Unavailable [phone] SAUMYA HARVEY Attending Unavailable MILLIE FRANCO Attending Unavailable YONG LU Attending Unavailable HEMSHWETHA NGUYEN Attending Unavailable KAVYA FONSECA Attending Unavailable MILLIE FRANCO Attending Unavailable MILLIE FRANCO Referring Unavailable ISHAAN FONSECAY Jennifer Attending Unavailable HEMWENDY SHWETHA M Referring Unavailable KAVYA FONSECA Attending Unavailable HEMWENDY SHWETHA M Referring Unavailable KERI RILEY Attending Unavailable SCOTT FONSECAEMCheyenne Elias Attending Unavailable HEMSHWETHA NGUYEN M Referring Unavailable SERVANDO KAVYA Jennifer Attending Unavailable HEMSHWETHA NGUYEN M Referring Unavailable SCOTT FONSECAEMCheyenne Elias Attending Unavailable HEMSHWETHA NGUYEN M Referring Unavailable HEMSHWETHA NGUYEN M Attending Unavailable Unallocatfrancesco PAPPAS, Noms Provider Primary Care Provi maggie No Pcp, No Pcp Primary Care Provider Unavailabl e Beto PAPPAS, Agustin Marino Attending Unavailable Beto PAPPAS, Agustin Marino Attending Unavailable Medications Current Medications Medication Drug Class(es) Dates [...] Gordon MD on 08/09/2024 12:20 PM Normal [facility] HCG.beta subunit IA 3rd IS Q non 08-02-2024 HCG.beta subunit Qn 7 m[IU]/mL Normal [facility] Comment on above: Result Comment: NEW REFERENCE [...] BCA, 2839-9, THYR, 3051-0, 2842-3, 2132-9, 2243-4, 43464-7 #### [facility] ([id number]) [address] [place] [address], [address] [place] [address] HCG.beta subunit IA 3rd IS Q non 07-17-2024 HCG.beta subunit Qn 77 m[IU]/mL Normal [facility] Comment on above: Result Comment: NEW [...] BCA, 2839-9, THYR, 3051-0, 2842-3, 2132-9, 2243-4, 14355-2 #### [facility] ([id number]) [address], [address] [place] [address] HCG.beta subunit IA 3rd IS Q non 07-03-2024 HCG.beta subunit Qn 3133 m[IU]/mL Normal Pr [facility] Comment on above: Result Comment: NEW REFERENCE [...] neoplasms. Performed By: #### 2 0415-6 #### [facility] ([id number]) [address], [address] [place] [address] CBC AND AUTO DIFFon 17-20 24 ABSOLUTE BASOPHIL 0.1 X10E9/L Normal 0.0-0.2 [facility] Comment on above: Performed By: #### C BCA, 2839-9, THYR, 3051-0, 2842-3, 2132-9, 2243-4, 53518-8 #### [facility] ([id number]) [address] [place] [address] ABSOLUTE NEUTROPHIL 2.7 X10E9/L Normal 1.5-6.6 [place] Comment on above: Performed By: #### C BCA, 2839-9, THYR, 3051-0, 2842-3, 2132-9, 2243-4, 28209-5 #### [facility] ([id number]) [address], [address] [place] [address] Basophils/100 WBC (Bld) 0.9 % Normal [facility] Comment on above: Performed By: #### C BCA, 2839-9, THYR, 3051-0, 2842-3, 2132-9, 2243-4, 31449-1 #### [facility] ([id number]) [address], [address] [place] [address] Eosinophils (Bld) [#/Vol] 0.1 10*3/uL Normal 0.0-0.4 [facility] Comment on above: Performed By: #### C BCA, 2839-9, THYR, 3051-0, 2842-3, 2132-9, 2243-4, 88183-9 #### [facility] ([id number]) [address], [address] [place] [address] Eosinophils/100 WBC (Bld) 1.5 % Normal [facility] Comment on above: Performed By: #### C BCA, 2839-9, THYR, 3051-0, 2842-3, 2132-9, 2243-4, 25475-0 #### [facility] ([id number]) [address] [address] [place] [address] Erythrocyte distribution width (RBC) [Ratio] 14.4 % Normal 11.5-15.0 [facility] Comment on above: Performed By: #### C BCA, 2839-9, THYR, 3051-0, 2842-3, 2132-9, 2243-4, 38768-3 #### [facility] ([id number]) [address], [address] [place] [address] Hematocrit (Bld) [Volume fraction] 40.9 % Normal 35-47 [facility] Comment on above: Performed By: #### C BCA, 2839-9, THYR, 3051-0, 2842-3, 2132-9, 2243-4, 18553-8 #### [facility] ([id number]) [address], [address] [place] [address] Hemoglobin (Bld) [Mass/Vol] 13.9 g/dL Normal 11.7-15.5 [facility] Comment on above: Performed By: #### C BCA, 2839-9, THYR, 3051-0, 2842-3, 2132-9, 2243-4, 83314-6 #### [facility] ([id number]) [address], [address] [place] [address] Lymphocytes (Bld) [#/Vol] 2.4 10*3/uL Normal 1.0-3.5 [facility] Comment on above: Performed By: #### C BCA, 2839-9, THYR, 3051-0, 2842-3, 2132-9, 2243-4, 34816-7 #### [facility] ([id number]) [address], [address] [place] [address] Lymphocytes/100 WBC (Bld) 43.3 % Normal [facility] Comment on above: Performed By: #### C BCA, 2839-9, THYR, 3051-0, 2842-3, 2132-9, 2243-4, 39326-7 #### [facility] ([id number]) [address], [address] [place] [address] MCH (RBC) [Entitic mass] 28.2 pg Normal 27-34 [facility] Comment on above: Performed By: #### C BCA, 2839-9, THYR, 3051-0, 2842-3, 2132-9, 2243-4, 20899-0 #### [facility] ([id number]) [address], [address] [place] [address] MCHC (RBC) [Mass/Vol] 34.0 g/dL Normal 32-36 [facility] Comment on above: Performed By: #### C BCA, 2839-9, THYR, 3051-0, 2842-3, 2132-9, 2243-4, 27359-3 #### [facility] ([id number]) [address], [address] [place] [address] MCV (RBC) [Entitic vol] 83 fL Normal 80-100 [facility] Comment on above: Performed By: #### C BCA, 2839-9, THYR, 3051-0, 2842-3, 2132-9, 2243-4, 93346-8 #### [facility] ([id number]) [address], [address] [place] [address] Monocytes (Bld) [#/Vol] 0.4 10*3/uL Normal 0-0.9 [facility] Comment on above: Performed By: #### C BCA, 2839-9, THYR, 3051-0, 2842-3, 2132-9, 2243-4, 33715-0 #### [facility] ([id number]) [address], [address] [place] [address] Monocytes/100 WBC (Bld) 7.4 % Normal [facility] Comment on above: Performed By: #### C BCA, 2839-9, THYR, 3051-0, 2842-3, 2132-9, 2243-4, 20178-9 #### [facility] ([id number]) [address], [address] [place] [address] Neutrophils/100 WBC (Bld) 46.9 % Normal [facility] Comment on above: Performed By: #### C BCA, 2839-9, THYR, 3051-0, 2842-3, 2132-9, 2243-4, 54324-7 #### [facility] ([id number]) [address], [address] [place] [address] Platelet mean volume (Bld) [Entitic vol] 8.1 fL Normal 7-12 [facility] Comment on above: Performed By: #### C BCA, 2839-9, THYR, 3051-0, 2842-3, 2132-9, 2243-4, 50109-0 #### [facility] ([id number]) [address], [address] [place] [address] Platelets (Bld) [#/Vol] 290 10*3/uL Normal 150-450 [facility] Comment on above: Performed By: #### C BCA, 2839-9, THYR, 3051-0, 2842-3, 2132-9, 2243-4, 99311-9 #### [facility] ([id number]) [address], [address] [place] [address] RBC COUNT 4.94 X10E12/L Normal 3.80-5.20 [facility] Comment on above: Performed By: #### C BCA, 2839-9, THYR, 3051-0, 2842-3, 2132-9, 2243-4, 52253-1 #### [facility] ([id number]) [address] [address] [place] [address] WBC (Bld) [#/Vol] 5.7 10*3/uL Normal 4.0-11.0 [facility] Comment on above: Performed By: #### C BCA, 2839-9, THYR, 3051-0, 2842-3, 2132-9, 2243-4, 66541-7 #### [facility] ([id number]) [address], [address] [place] [address] Cortisol [Mass/Vol]on 2023 CORTISOL 7.9 ug/dL Normal [facility] Comment on above: Result Comment: Due to the diurnal variation of cortisol levels in normal subjects, all cortisol measurements should be referenced to the time of day of sample collection. AM Cortisol Age>=6 6.7-22.4 ug/dL PM Cortisol Age>=6 <10 ug/dL Performed By: #### 2 143-6 #### [facility] ([id number]) [address] [place] [address], [address] [place] [address] E2 [Mass/Vol]on 01-30-2024 ESTRADIOL 45.3 pg/mL Normal [facility] Comment on above: Result Comment: NON- FEMALES [...] BCA, 2839-9, THYR, 3051-0, 2842-3, 2132-9, 2243-4, 71331-9 #### [facility] ([id number]) [address] [place] [address], [address] [place] [address] FREE T3on 01-30-2024 Free T3 [Mass/Vol] 3.69 pg/mL Normal 2.50-3.90 [facility] Comment on above: Performed By: #### C BCA, 2839-9, THYR, 3051-0, 2842-3, 2132-9, 2243-4, 39475-1 #### [facility] ([id number]) [address], [address] [place] [address] Follitropin Qnon 01-30-2024 FOLLICLE STIM HORMONE 9.1 mIU/mL Normal [facility] Comment on above: Result Comment: NORMAL FEMALE Luteal 1.8-5.1 mIU/mL Follicular 3.8-8.8 mIU/mL Mid Cycle 4.5-22.5 mIU/mL Post [place] 16.7-113.6 mIU/mL Performed By: ###Aixa C BCA, 2839-9, THYR, 3051-0, 2842-3, 2132-9, 2243-4, 71111-5 #### [facility] ([id number]) [address], [address] [place] [address] Progesterone [Mass/Vol]on PROGESTERONE 0.5 ng/mL Normal [facility] Comment on above: Result Comment: FEMALES: 1st Tri: 4.7-50.7 ng/ml 2nd Tri: 19.4-45.3 ng/ml MENSTRUATING FEMALES: Follicular: 0.3-1.5 ng/ml Mid Luteal: 5.2-18.6 ng/ml Post [place]: <0.1-0.8 ng/ml Performed By: #Madeline Maloney BCA, 2839-9, THYR, 3051-0, 2842-3, 2132-9, 2243-4, 51855-1 #### [facility] ([id number]) [address], [address] [place] [address] Prolactin [Mass/Vol]on 01-29 PROLACTIN 6.1 ng/mL Normal 3.3-26.7 [facility] Comment on above: Performed By: #### C BCA, 2839-9, THYR, 3051-0, 2842-3, 2132-9, 2243-4, 21228-4 #### [facility] ([id number]) [address], [address] [place] [address] THYROID PROFILEon 01-30-2024 Free T4 [Mass/Vol] 1.04 ng/dL Normal 0.61-1.60 [facility] Comment on above: Performed By: #### C BCA, 2839-9, THYR, 3051-0, 2842-3, 2132-9, 2243-4, 09593-0 #### [facility] ([id number]) [address], [address] [place] [address] TSH 0.95 uIU/mL Normal 0.49-4.67 [facility] Comment on above: Performed By: #### C BCA, 2839-9, THYR, 3051-0, 2842-3, 2132-9, 2243-4, 94213-5 #### [facility] ([id number]) [address], [address] [place] [address] VITAMIN B12on 01-30-2024 Cobalamin (Vitamin B12) [Mass/Vol] 422 pg/mL Normal 180-914 [facility] Comment on above: Performed By: #### C BCA, 2839-9, THYR, 3051-0, 2842-3, 2132-9, 2243-4, 73032-4 #### [facility] ([id number]) [address], [address] [place] [address] Complete Blood Count Auto Di ffon 01-27-2022 Basophils (Bld) [#/Vol] 0.1 10*3/uL Normal 0.0-0.2 [facility] Comment on above: Order Comment: Comme nt Draw at 630 am Result Comment: PERF ORMED BY: [place] [address] PATHOLOGIST SYSTEM DESIGNER CARMELO GROVES M.D. Performed By: #### C BC #### [address] Basophils/100 WBC (Bld) 0.5 % Normal . [facility] Comment on above: Order Comment: Comme nt Draw at 630 am Performed By: #### C BC #### [address] Eosinophils (Bld) [#/Vol] 0.3 10*3/uL Normal 0.0-0.45 [facility] Comment on above: Order Comment: Comme nt Draw at 630 am Performed By: #### C BC #### [address] Eosinophils/100 WBC (Bld) 1.9 % Normal . [facility] Comment on above: Order Comment: Comme nt Draw at 630 am Performed By: #### C BC #### [address] Erythrocyte distribution width (RBC) [Ratio] 17.4 % High 11.9-15.3 [facility] Comment on above: Order Comment: Comme nt Draw at 630 am Performed By: #### C BC #### [address] Hematocrit (Bld) [Volume fraction] 30.5 % Low 34.0-46.4 [facility] Comment on above: Order Comment: Comme nt Draw at 630 am Performed By: #### C BC #### [address] Hemoglobin (Bld) [Mass/Vol] 9.7 g/dL Low 11.8-15.4 [facility] Comment on above: Order Comment: Comme nt Draw at 630 am Performed By: #### C BC #### [place] [address] Lymphocytes (Bld) [#/Vol] 3.3 10*3/uL Normal 1.00-4.8 [facility] Comment on above: Order Comment: Comme nt Draw at 630 am Performed By: #### C BC #### [address] Lymphocytes/100 WBC (Bld) 24.6 % Normal . [facility] Comment on above: Order Comment: Comme nt Draw at 630 am Performed By: #### C BC #### [address] MCH (RBC) [Entitic mass] 22.3 pg Low 24.7-34.3 [facility] Comment on above: Order Comment: Comme nt Draw at 630 am Performed By: #### C BC #### [address] MCV (RBC) [Entitic vol] 70.5 fL Low 80-100 [facility] Comment on above: Order Comment: Comme nt Draw at 630 am Performed By: #### C BC #### [address] Mean Corpuscular HGB Conc 31.6 g/dL Low 32.0-35.0 [facility] Comment on above: Order Comment: Comme nt Draw at 630 am Performed By: #### C BC #### [address] Monocytes (Bld) [#/Vol] 0.7 10*3/uL Normal 0.0-0.8 [facility] Comment on above: Order Comment: Comme nt Draw at 630 am Performed By: #### C BC #### [place] [address] [place] Monocytes/100 WBC (Bld) 5.3 % Normal . [facility] Comment on above: Order Comment: Comme nt Draw at 630 am Performed By: #### C BC #### [place] [address] [place] Neutrophils (Bld) [#/Vol] 9.0 10*3/uL High 1.8-7.7 [facility] Comment on above: Order Comment: Comme nt Draw at 630 am Performed By: #### C BC #### [address] Neutrophils/100 WBC (Bld) 67.7 % Normal . [facility] Comment on above: Order Comment: Comme nt Draw at 630 am Performed By: #### C BC #### [address] Nucleated RBC/100 WBC (Bld) [Ratio] 0.1 % Normal 0-0.5 [facility] Comment on above: Order Comment: Comme nt Draw at 630 am Performed By: #### C BC #### [address] Platelet mean volume (Bld) [Entitic vol] 8.0 fL Normal 6.3-10.7 [facility] Comment on above: Order Comment: Comme nt Draw at 630 am Performed By: #### C BC #### [place] [address] [place] Platelets (Bld) [#/Vol] 242 10*3/uL Normal 150-450 [facility] Comment on above: Order Comment: Comme nt Draw at 630 am Performed By: #### C BC #### [place] [address] [place] RBC (Bld) [#/Vol] 4.33 10*6/uL Normal 3.60-5.00 [facility] Comment on above: Order Comment: Comme nt Draw at 630 am Performed By: #### C BC #### [place] [address] [place] WBC (Bld) [#/Vol] 13.3 10*3/uL High 4.5-11.0 [facility] Comment on above: Order Comment: Comme nt Draw at 630 am Performed By: #### C BC #### [place] [address] [place] Amnisure(Pamg-1)on 2 Amnisure Positive High Negative [facility] Comment on above: Order Comment: Comme nt For suspected repture of membranes Result Comment: PERF ORMED BY: [facility] [address] [id number] PATHOLOGIST SYSTEM DESIGNER CARMELO GROVES M.D. Performed By: #### C UU, ADDONUAPLUS, AMNISURE-, OBUDS #### [facility] [address] [id number] [facility] COVID-19 Antigenon 2 COVID-19 Antigen Healthcare Worker?: [...] developed and its performance characteristic determined by [facility] and validated at [facility]. This test has not been FDA cleared [...] for SARS Antigen by BRAD PERFORMED BY: [place] [address] PATHOLOGIST SYSTEM DESIGNER CARMELO GROVES M.D. [facility] Comment on above: Performed By: #### C OVID-19 BRIGID, SOFIANEG #### [address] Complete Blood Count Auto Di ffon 01-26-2022 Basophils (Bld) [#/Vol] 0.0 10*3/uL Normal 0.0-0.2 [facility] Comment on above: Result Comment: PERF ORMED BY: [place] [address] PATHOLOGIST SYSTEM DESIGNER CARMELO GROVES M.D. Performed By: #### R DC W RFX #### [facility] , #### CBC #### [address] Basophils/100 WBC (Bld) 0.3 % Normal . [facility] Comment on above: Performed By: #### R DC W RFX #### [facility] , #### CBC #### [address] Eosinophils (Bld) [#/Vol] 0.1 10*3/uL Normal 0.0-0.45 [facility] Comment on above: Performed By: #### R DC W RFX #### [facility] , #### CBC #### [address] Eosinophils/100 WBC (Bld) 1.2 % Normal . [facility] Comment on above: Performed By: #### R DC W RFX #### [facility] , #### CBC #### [address] Erythrocyte distribution width (RBC) [Ratio] 17.3 % High 11.9-15.3 [facility] Comment on above: Performed By: #### R DC W RFX #### [facility] , #### CBC #### [facility] [address] [place] [address] Hematocrit (Bld) [Volume fraction] 33.5 % Low 34.0-46.4 [facility] Comment on above: Performed By: #### R DC W RFX #### [facility] , #### CBC #### [address] Hemoglobin (Bld) [Mass/Vol] 10.6 g/dL Low 11.8-15.4 [facility] Comment on above: Performed By: #### R DC W RFX #### [facility] , #### CBC #### [address] Lymphocytes (Bld) [#/Vol] 2.6 10*3/uL Normal 1.00-4.8 [facility] Comment on above: Performed By: #### R DC W RFX #### [facility] , #### CBC #### [facility] [address] [place] [address] [place] Lymphocytes/100 WBC (Bld) 21.8 % Normal . [facility] Comment on above: Performed By: #### R DC W RFX #### [facility] , #### CBC #### [facility] [address] [place] [address] MCH (RBC) [Entitic mass] 22.2 pg Low 24.7-34.3 [facility] Comment on above: Performed By: #### R DC W RFX #### [facility] , #### CBC #### [facility] [address] [place] [address] MCV (RBC) [Entitic vol] 70.1 fL Low 80-100 [facility] Comment on above: Performed By: #### R DC W RFX #### [facility] , #### CBC #### [address] Mean Corpuscular HGB Conc 31.6 g/dL Low 32.0-35.0 [facility] Comment on above: Performed By: #### R DC W RFX #### [facility] , #### CBC #### [facility] [address] [place] [address] Monocytes (Bld) [#/Vol] 0.7 10*3/uL Normal 0.0-0.8 [facility] Comment on above: Performed By: #### R DC W RFX #### [facility] , #### CBC #### [address] Monocytes/100 WBC (Bld) 6.3 % Normal . [facility] Comment on above: Performed By: #### R DC W RFX #### [facility] , #### CBC #### [place] [address] [place] Neutrophils (Bld) [#/Vol] 8.4 10*3/uL High 1.8-7.7 [facility] Comment on above: Performed By: #### R DC W RFX #### [facility] , #### CBC #### [facility] [address] [place] [address] [place] Neutrophils/100 WBC (Bld) 70.4 % Normal . [facility] Comment on above: Performed By: #### R DC W RFX #### [facility] , #### CBC #### [facility] [address] [place] [address] [place] Nucleated RBC/100 WBC (Bld) [Ratio] 0.0 % Normal 0-0.5 [facility] Comment on above: Performed By: #### R DC W RFX #### [facility] , #### CBC #### [facility] [address] [place] [address] Platelet mean volume (Bld) [Entitic vol] 8.1 fL Normal 6.3-10.7 [facility] Comment on above: Performed By: #### R DC W RFX #### [facility] , #### CBC #### [facility] [address] [place] [address] Platelets (Bld) [#/Vol] 267 10*3/uL Normal 150-450 [facility] Comment on above: Performed By: #### R DC W RFX #### [facility] , #### CBC #### [address] RBC (Bld) [#/Vol] 4.77 10*6/uL Normal 3.60-5.00 [facility] Comment on above: Performed By: #### R DC W RFX #### [facility] , #### CBC #### [address] WBC (Bld) [#/Vol] 11.9 10*3/uL High 4.5-11.0 [facility] Comment on above: Performed By: #### R DC W RFX #### [facility] , #### CBC #### [facility] [address] [place] [address] Dipstick and Microscopicon 0 01-26-2022 Appearance (U) Clear Normal Clear [facility] Comment on above: Order Comment: Name Collection Type:: Clean-Voided Midstream Performed By: #### C UU, ADDONUAPLUS, AMNISURE-, OBUDS #### [address] Bacteria,Urine None Seen Normal None Seen [facility] Comment on above: Order Comment: Name Collection Type:: Clean-Voided Midstream Performed By: #### C UU, ADDONUAPLUS, AMNISURE-, OBUDS #### [facility] [address] [place] [address] [place] Bilirubin,Urine Negative Normal Negative [facility] Comment on above: Order Comment: Name Collection Type:: Clean-Voided Midstream Performed By: #### C UU, ADDONUAPLUS, AMNISURE-, OBUDS #### [facility] [address] [place] [address] [place] Color (U) Yellow Normal Yellow [facility] Comment on above: Order Comment: Name Collection Type:: Clean-Voided Midstream Performed By: #### C UU, ADDONUAPLUS, AMNISURE-, OBUDS #### [facility] [address] [place] [address] Glucose Ql (U) Normal Normal Normal [facility] Comment on above: Order Comment: Name Collection Type:: Clean-Voided Midstream Performed By: #### C UU, ADDONUAPLUS, AMNISURE-, OBUDS #### [facility] [address] [place] [address] Hyaline Casts,Urine 0-8 Normal 0-8 [facility] Comment on above: Order Comment: Name Collection Type:: Clean-Voided Midstream Result Comment: PERF ORMED BY: [place] [address] PATHOLOGIST SYSTEM DESIGNER CARMELO GROVES M.D. Performed By: #### C UU, ADDONUAPLUS, AMNISURE-, OBUDS #### [facility] [address] [place] [address] [place] Ketones Ql (U) Negative Normal Negative [facility] Comment on above: Order Comment: Name Collection Type:: Clean-Voided Midstream Performed By: #### C UU, ADDONUAPLUS, AMNISURE-, OBUDS #### [facility] [address] [place] [address] Leukocyte esterase Test strip Ql (U) 1+ High Negative [facility] Comment on above: Order Comment: Name Collection Type:: Clean-Voided Midstream Performed By: #### C UU, ADDONUAPLUS, AMNISURE-, OBUDS #### [address] Nitrite,Urine Negative Normal Negative [facility] Comment on above: Order Comment: Name Collection Type:: Clean-Voided Midstream Performed By: #### C UU, ADDONUAPLUS, AMNISURE-, OBUDS #### [address] Occult Blood,Urine 2+ High Negative [facility] Comment on above: Order Comment: Name Collection Type:: Clean-Voided Midstream Result Comment: PERF ORMED BY: [place] [address] PATHOLOGIST SYSTEM DESIGNER CARMELO GROVES M.D. Performed By: #### C UU, ADDONUAPLUS, AMNISURE-, OBUDS #### [address] pH (U) 6.5 [pH] Normal 5.0-9.0 [facility] Comment on above: Order Comment: Name Collection Type:: Clean-Voided Midstream Performed By: #### C UU, ADDONUAPLUS, AMNISURE-, OBUDS #### [address] Protein,Urine Negative Normal Negative [facility] Comment on above: Order Comment: Name Collection Type:: Clean-Voided Midstream Performed By: #### C UU, ADDONUAPLUS, AMNISURE-, OBUDS #### [address] RBC LM.HPF (Urine sed) [#/Area] 0 /[HPF] Normal 0-4 [facility] Comment on above: Order Comment: Name Collection Type:: Clean-Voided Midstream Performed By: #### C UU, ADDONUAPLUS, AMNISURE-, OBUDS #### [address] Specificy [place],Urine 1.010 Normal 1.001-1.030 [facility] Comment on above: Order Comment: Name Collection Type:: Clean-Voided Midstream Performed By: #### C UU, ADDONUAPLUS, AMNISURE-, OBUDS #### [place] [address] [place] Squamous Epithelial Cell,Urine 10-19 High 0-2 [facility] Comment on above: Order Comment: Name Collection Type:: Clean-Voided Midstream Performed By: #### C UU, ADDONUAPLUS, AMNISURE-, OBUDS #### [facility] [address] [place] [address] Urobilinogen,Urine Normal Normal Normal [facility] Comment on above: Order Comment: Name Collection Type:: Clean-Voided Midstream Performed By: #### C UU, ADDONUAPLUS, AMNISURE-, OBUDS #### [facility] [address] [place] [address] [place] WBC,Urine 5-9 High 0-4 [facility] Comment on above: Order Comment: Name Collection Type:: Clean-Voided Midstream Performed By: #### C UU, ADDONUAPLUS, AMNISURE-, OBUDS #### [address] [place] Urine Drug Screen (NO THC )on 01-26-2022 Amphetamine Screen,Urine Negative Normal Negative [facility] Comment on above: Performed By: #### C UU, ADDONUAPLUS, AMNISURE-, OBUDS #### [place] [address] [place] Barbiturate Screen,Urine Negative Normal Negative [facility] Comment on above: Performed By: #### C UU, ADDONUAPLUS, AMNISURE-, OBUDS #### [place] [address] [place] Benzodiazepines Screen,Urine Negative Normal Negative [facility] Comment on above: Performed By: #### C UU, ADDONUAPLUS, AMNISURE-, OBUDS #### [facility] [address] Cocaine Screen,Urine Negative Normal Negative [facility] Comment on above: Performed By: #### C UU, ADDONUAPLUS, AMNISURE-, OBUDS #### [facility] [address] Opiate Screen,Urine Negative Normal Negative [facility] Comment on above: Performed By: #### C UU, ADDONUAPLUS, AMNISURE-, OBUDS #### [address] Phencyclidine Screen, Urine Negative Normal Negative [facility] Comment on above: Result Comment: Thes e are unconfirmed results and should not be used for legal purposes. Drug Cut-Off Concentration: AMPH 1000 ng/mL JOEL 200 ng/mL JANKI 200 ng/mL COCM 300 ng/mL OP 300 ng/mL PCP 25 ng/mL PERFORMED BY: [place] [address] PATHOLOGIST SYSTEM DESIGNER CARMELO GROVES M.D. Performed By: #### C UU, ADDONUAPLUS, AMNISURE-, OBUDS #### [address] RPR w/rfx to Quant TP Abson 01-26-2022 RPR, Rfx Quant RPR Non-Reactive Normal Non Reactive [facility] Comment on above: Result Comment: Perf ormed at: CB - [facility] [address] [id number] Director Meetings: Tiburcio Figueredo PhD, Phone: [phone] PERFORMED BY: [place] [address] PATHOLOGIST SYSTEM DESIGNER CARMELO GROVES M.D. Performed By: #### R DC W RFX #### [facility] , #### CBC #### [address] Brigid Ag Negativeon 01-27-20 Brigid Ag Negative Negative Normal Negative [facility] Comment on above: Result Comment: This is a duplicate Brigid SARS Antigen (BRAD) result to be used for statistical tracking purpose only. PERFORMED BY: [place] [address] PATHOLOGIST SYSTEM DESIGNER CARMELO GROVES M.D. Performed By: #### C OVID-19 BRIGID, SOFIANEG #### [facility] [address] [place] [address] Urine Cultureon 01-26-2022 Bacteria identified Cx Nom (U) ORGANISM: Strep. agalactiae Grp B (O:B) [place] Count 15,000 PERFORMED BY: [place] [address] PATHOLOGIST SYSTEM DESIGNER CARMELO GROVES M.D. [facility] Comment on above: Performed By: #### C UU, ADDONUAPLUS, AMNISURE-, OBUDS #### [facility] [address] [place] [address] Strep B Cultureon 01-01-2022 Strep B Culture Reason for Exam 35 weeks gestation of ; screening for stre Vaginal/Rectal ORGANISM: Strep. agalactiae Grp B (O:B) PERFORMED BY: [place] [address] PATHOLOGIST SYSTEM DESIGNER CARMELO GROVES M.D. [facility] Comment on above: Performed By: #### C USTB #### [facility] [address] [place] [address] Vital Signs Date Time Vital Sign Value Performing Clinician Faci lity 08-17-2024 10:050 Body height 162.6 cm Shwetha SANCHEZ Work Phone: [facility] 08-17-2024 10:16-050 Body mass index (BMI) [Ratio] 24.44 kg/m2 Shwetha SANCHEZ Work Phone: [facility] 08-17-2024 10:16050 Body weight 64.59 kg Shwetha SANCHEZ Work Phone: [facility] 08-17-2024 10:16-0500 Diastolic blood pressure 84 mm[Hg] Shwetha Hemmer PA Work Phone: [facility] 08-17-2024 10:16-0500 Heart rate 77 /min Shwetha Hemmer PA Work Phone: [facility] 08-17-2024 10:16-0500 Respiratory rate 16 /min Shwetha Hemmer PA Work Phone: [facility] 08-17-2024 10:16-0500 SaO2% (BldA) [Mass fraction] 99 % Shwetha Hemmer PA Work Phone: [facility] 08-17-2024 10:16-0500 Systolic blood pressure 126 mm[Hg] Shwetha Hemmer PA Work Phone: [facility] 06-02-2024 11:49-0400 Body height 162.6 cm Shwetha Hemmer PA Work Phone: [facility] 06-02-2024 11:49-0400 Body mass index (BMI) [Ratio] 24.07 kg/m2 Shwetha Hemmer PA Work Phone: [facility] 06-02-2024 11:49-0400 Body weight 63.59 kg Shwetha Hemmer PA Work Phone: [facility] 06-02-2024 11:49-0400 Diastolic blood pressure 82 mm[Hg] Shwetha Hemmer PA Work Phone: [facility] 06-02-2024 11:49-0400 Heart rate 79 /min Shwetha Hemmer PA Work Phone: [facility] 06-02-2024 11:49-0400 Respiratory rate 16 /min Shwetha Hemmer PA Work Phone: [facility] 06-02-2024 11:49-0400 SaO2% (BldA) [Mass fraction] 96 % Shwetha Hemmer PA Work Phone: [facility] 06-02-2024 11:49-0400 Systolic blood pressure 122 mm[Hg] Shwetha Hemmer PA Work Phone: [facility] Encounters Encounter Date Encounter Type Care Provider Facility Start: 09-27-2024 End: 09-27-2024 ambulatory Agustin Pérez MD Facility:[facility] Start: 09-21-2024 End: 09-21-2024 Telephone encounter Sham[facility] Comment on above: referral Start: 09-13-2024 End: 09-13-2024 ambulatory Agustin P[facility]rez MD [facility] Start: 08-17-2024 End: 08-17-2024 Bamboo flowsheet Shwetha [...] muscle; Miscarriage Start: 08-09-2024 End: 08-09-2024 ambulatory SHWETHA JAMIEWENDY [facility] Start: 08-02-2024 End: 08-02-2024 ambulatory SOLEDADROSA KNIGHT [facility] Start: 07-17-2024 End: 07-17-2024 ambulatory KERI Mike RILEY [facility] Start: 07-06-2024 End: 07-06-2024 Bamboo flowsheet Kavya [...] C5 Start: 07-03-2024 End: 07-03-2024 ambulatory KERI RILEY [facility] Start: 06-28-2024 End: 06-28-2024 Bamboo flowsheet Kavya [...] Miscarriage Start: 06-16-2024 End: 06-16-2024 ambulatory KERI RILEY Not Available Start: 06-16-2024 End: 06-16-2024 Bamboo [...] Start: 06-14-2024 End: 06-14-2024 Bamboo flowsheet Kavya Fonseca PT Work Phone: [facility] Start: 06-14-2024 End: 06-14-2024 Bamboo flowsheet Kavyainder Fonseca PT Work Phone: [facility] Start: 06-14-2024 End: 06-14-2024 ambulatory KAVYA FONSECA [facility] Comment on above: Cervical pain (Prima ry Dx); Chronic scapular pain; Cervical radiculopathy at C5 Start: 06-09-2024 End: 06-09-2024 Bamboo flowsheet Kavya Fonseca PT Work Phone: [facility] Start: 06-09-2024 End: 06-09-2024 Bamboo flowsheet Kavya Fonseca PT Work Phone: [facility] Start: 06-09-2024 End: 06-09-2024 ambulatory KAVYA FONSECA [facility] Comment on above: Cervical pain (Prima [...] Start: 05-24-2024 End: 05-24-2024 flow sheet [facility] Comment on above: GA: 5w0d Start: 05-24-2024 End: 05-24-2024 ambulatory SAUMYA HARVEY Not Available Start: 05-14-2024 End: 05-18-2024 Telephone encounter Millie Aponte Joan DO Work Phone: [facility] Start: 02-04-2024 End: 02-04-2024 ambulatory YONG LU Not Available Start: 01-30-2024 End: 01-30-2024 ambulatory MILLIE JOAN [facility] Start: 01-29-2024 End: 01-29-2024 ambulatory MILLIE Aponte IRWINYEN Not Available Start: 12-29-2023 End: 12-29-2023 ambulatory SAUMYA MACKENZIEFADIASavi Not Available Start: 08-27-2023 End: 08-27-2023 ambulatory MILLIE Aponte IRWINYEN Not Available Procedures Date Procedure Procedure Detail Performing Clinician Start: 03-26-2023 Microscopic observat ion [Identifier] in Cervix by Cyto stain Millie Franco DO Work Phone: Plan of Treatment Date Care Activity Detail Author Start: 01-04-2032 DTaP,Tdap and Td Vaccines (3 - Td or Tdap) DTaP,Tdap and Td Vaccines (3 - Td or Tdap) [facility] Start: 03-26-2028 Screening for malign ant neoplasm of cervix [facility] Start: 03-26-2026 Screening for malign ant neoplasm of cervix Pap Smear [facility] Start: 03-14-2025 Influenza vaccination Influenza Vacc ine (#1) [facility] Comment on above: Postponed from 05/16 (Patient Refused) Start: 12-28-2024 End: 12-28-2024 Patient encounter procedure 12/28/2024 3:50 PM EDT Office Visit [facility] [address] [place] [address] Saumya Harvey MD [address] [place] [address] [facility] Start: 08-22-2024 Tobacco Screening Tobacco Screening [facility] Start: 07-06-2024 End: 07-06-2024 ambulatory 07/06/2024 1:15 PM EDT Initial [facility] [address] [place] [id number] Keri Riley, DO [address] [place] [address] [facility] Start: 06-28-2024 End: 06-28-2024 ambulatory 06/28/2024 9:00 AM EDT Treatment [facility] [address] [facility] [address] [place] [address] Kavya Fonseca, PT [address] [place] [address] [facility] Start: 06-18-2024 End: 06-18-2024 ambulatory 06/18/2024 10:30 AM EDT Treatment [facility] [address] [facility] [address] [place] [address] Santos Mathews, ANNELIESE [facility] Start: 06-16-2024 End: 06-16-2024 Professional / ancillary services management 06/16/2024 3:30 PM EDT Ancillary Procedure [facility] [address] [place] [id number] [facility] Start: 06-16-2024 End: 06-16-2024 ambulatory [facility] Start: 06-14-2024 End: 06-14-2024 ambulatory [facility] Start: 05-25-2024 End: 05-25-2024 Patient encounter procedure 05/25/2024 3:15 PM EDT Office Visit [facility] [address] [id number] Millie Franco, DO [address] [phone] [facility] Start: 05-24-2024 End: 05-24-2025 Bacteria identified in Urine by Culture Urine culture Microbiology Routine care, subsequent in first trimester Expected: 05/24/2024 (Approximate), Expires: 05/24/2025 [facility] Work Phone: Comment on above: Expected: 05/24/2024 (Approximate), Expires: 05/24/2025 Start: 05-24-2024 End: 05-24-2025 Blood type and Indirect antibody screen panel - Blood Type and screen Lab Routine care, subsequent in first trimester Expected: 05/24/2024 (Approximate), Expires: 05/24/2025 [facility] Comment on above: Expected: 05/24/2024 (Approximate), Expires: 05/24/2025 Start: 05-24-2024 End: 05-24-2025 CBC W Auto Differential panel - Blood CBC and differential Lab Routine care, subsequent in first trimester Expected: 05/24/2024 (Approximate), Expires: 05/24/2025 [facility] Comment on above: Expected: 05/24/2024 (Approximate), Expires: 05/24/2025 Start: 05-24-2024 End: 05-24-2025 Drugs of abuse panel - Urine by Screen method Rapid drug screen, urine Lab Routine care, subsequent in first trimester Encounter for drug screening Expected: 05/24/2024 (Approximate), Expires: 05/24/2025 [facility] Comment on above: Expected: 05/24/2024 (Approximate), Expires: 05/24/2025 Start: 05-24-2024 End: 05-24-2025 Hepatitis B virus surface Ag [Presence] in Serum or Plasma by Immunoassay Hepatitis B surface antigen Lab Routine care, subsequent in first trimester Expected: 05/24/2024 (Approximate), Expires: 05/24/2025 [facility] Comment on above: Expected: 05/24/2024 (Approximate), Expires: 05/24/2025 Start: 05-24-2024 End: 05-24-2025 Hepatitis C virus Ab [Presence] in Serum or Plasma by Immunoassay Hepatitis C antibody Lab Routine care, subsequent in first trimester Expected: 05/24/2024 (Approximate), Expires: 05/24/2025 [facility] Comment on above: Expected: 05/24/2024 (Approximate), Expires: 05/24/2025 Start: 05-24-2024 End: 05-24-2025 HIV-1/HIV-2 antigen/antibody combination immunoassay HIV-1 and HIV-2 antibodies Lab Routine care, subsequent in first trimester Expected: 05/24/2024 (Approximate), Expires: 05/24/2025 [facility] Comment on above: Expected: 05/24/2024 (Approximate), Expires: 05/24/2025 Start: 05-24-2024 End: 05-24-2025 Rpr (dx) w/refl titer and confirmatory testing Rpr (dx) w/refl titer and confirmatory testing Lab Routine care, subsequent in first trimester Expected: 05/24/2024 (Approximate), Expires: 05/24/2025 [facility] Comment on above: Expected: 05/24/2024 (Approximate), Expires: 05/24/2025 Start: 05-24-2024 End: 05-24-2025 Rubella antibody, IgG Rubella antibody, IgG Lab Routine care, subsequent in first trimester Expected: 05/24/2024 (Approximate), Expires: 05/24/2025 [facility] Comment on above: Expected: 05/24/2024 (Approximate), Expires: 05/24/2025 Start: 05-24-2024 End: 05-24-2025 Urinalysis complete panel - Urine Urinalysis with microscopic Lab Routine care, subsequent in first trimester Expected: 05/24/2024 (Approximate), Expires: 05/24/2025 [facility] Comment on above: Expected: 05/24/2024 (Approximate), Expires: 05/24/2025 Start: 05-16-2024 Influenza vaccination [facility] Start: 01-24-2012 Screening for malign ant neoplasm of cervix Pap Smear [facility] Start: 2009 Adult BMI Screening Adult BMI Screen ing [facility] Start: 2003 Depression Screening Depression Scre ening [facility] Payers Date Payer Category Payer Private Health Insurance [employer] [id number] 2023 Unknown [id number] 2019 Managed Care Other (unspecified) [employer] [id number] 2019 Unknown [id number] 1991 Unknown [id number]. 1285 1991 Unknown [id number] 2.840.1.027549.3.579.2. 1285 1991 Unknown [id number] 2.840.1.085571.3.579.2. 1285 1991 Unknown [id number] 2.840.1.738147.3.579.2. 1285 1991 Unknown [id number] 2.16.840.1.918662.3.579.2. 1285 1991 Unknown [id number] 2.16.840.1.696013.3.579.2. 1258 1991 Unknown [id number] 2.16.840.1.931553.3.579.2. 1258 1991 Unknown [id number] 2.16.840.1.113723.3.579.2. 1258 1991 Unknown [id number] 2.16.840.1.376927.3.579.2. 1258 1991 Unknown [id number] 2.16.840.1.840362.3.579.2. 1258 1991 Unknown [id number] 2.16.840.1.745601.3.579.2. 1258 1991 Unknown [id number] 2.16.840.1.077194.3.579.2. 1258 1991 Unknown [id number] 2.16.840.1.797713.3.579.2. 1258 1991 Unknown [id number] 2.16.840.1.801131.3.579.2. 1258 1991 Unknown [id number] 2.16.840.1.467072.3.579.2. 1258 1991 Unknown [id number] 2.16.840.1.141952.3.579.2. 1258 1991 Unknown [id number] 2.16.840.1.035156.3.579.2. 1258 1991 Unknown [id number] 2.16.840.1.762232.3.579.2. 1258 1991 Unknown [id number] 2.16.840.1.969288.3.579.2. 1258 1991 Unknown [id number] 2.16.840.1.510493.3.579.2. 1259 1991 Unknown [id number] 2.16.840.1.038838.3.579.2. 196 1991 Unknown [id number] 2.16.840.1.777090.3.579.2. 196 Social History Date Type Detail Facility Start: 03-26-2023 End: 08-22-2023 Tobacco smoking status NHIS Never smoked tobacco [facility] Start: 03-26-2023 End: 08-22-2023 Tobacco use and exposure Smokeless tobacco non-user [facility] Start: 05-24-2024 End: 06-02-2024 Alcoholic beverage intake Ex-drinker (finding) [facility] Start: 10-26-2020 End: 06-02-2024 History of Social function [facility] Start: 10-26-2020 End: 06-02-2024 Tobacco use panel [facility] Start: 03-28-2023 Education 16 [facility] Start: 05-24-2024 Alcohol Comment caffeine intak e : 1 cup coffee/daily [facility] Start: 05-03-2024 [facility] Start: 1990 Sex assigned at Not on file N [facility] Start: 03-28-2023 Alcohol Comment caffeine intake : no ne [facility] Start: 08-22-2023 Alcoholic beverage intake Lifetime non-drinker (finding) [facility] Frequency of Alcohol Consumption Never [facility] Start: 04-20-2015 Sex Female (finding) [facility] Clinical Notes 05-14-2024 to 09-21-2024 Telephone Encounter [...] however, we have not received patients referral. Teaching Dietitian explained that in order to schedule we would need a referral, office notes and a updated demographics sheet. Teaching Dietitian also gave patient the referrals fax number of [phone]. Patient was understanding. Please advise documented in this encounter [employer] 09-21-2024 Telephone encount er Note Patient contacted our office to schedule appointment, however, we have not received patients referral. Teaching Dietitian explained that in order to schedule we would need a referral, office notes and a updated demographics sheet. Teaching Dietitian also gave patient the referrals fax number of [phone]. Patient was understanding. [facility] History of Presen t illness Narrative [...] fail to improve. documented in this encounter [facility] 06-28-2024 History of Presen t illness Narrative [...] to be instructed in home exercise program. [facility] Goals: To be met in 10 weeks [...] sign below. Date: documented in this encounter [facility] 06-23-2024 History of Presen t illness Narrative [...] scapular muscle soreness/pain. Compliant with HEP. Pain: 12/23 Objective: PT Evaluation (06/09/24) Neck ROM: cervical [...] to be instructed in home exercise program. 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 Date: documented in this encounter [facility] 06-16-2024 History of Presen t illness Narrative Images from the original note were not included. Keri Riley D.O. Obstetrics and Gynecology Patient: Simi Garcia : 1990 (34 y.o.) Exam Date: 06/16/2024 Reason for Visit - Chief Complaint Patient presents with Follow-up Pt presents for follow up from Visit Vitals LMP 04/19/2024 OB Status Recent Smoking Status Never [...] Vitamins-Minerals (HAIR SKIN AND NAILS FORMULA PO) [id number] Millie Franco, Active 27-1 MG tablet [id number] No Take by mouth. Historical Provider, Taking [...] 1. Miscarriage O03.9 documented in this encounter [facility] 06-16-2024 History of Presen t illness Narrative [...] due to weather. Neck soreness today. Pain: 3/10 Objective: PT Evaluation (06/09/24) Neck ROM: cervical [...] to be instructed in home exercise program. [facility] Goals: To be met in 10 weeks [...] sign below. Date: documented in this encounter [facility] 06-14-2024 History of Presen t illness Narrative Physical Therapy Treatment Visit Patient Name: Simi Garcia Today's Date: 06/14/2024 Encounter Diagnoses Name Primary? Cervical pain Yes Chronic scapular pain Cervical radiculopathy at C5 Visit number: 2 Timed Code Treatment Minutes: 40 minutes Total Treatment Time: 40 minutes Time In: 704 Time Out: 744 History: Pt. Presents to [...] to be instructed in home exercise program. [facility] Goals: To be met in 10 weeks [...] sign below. Date: documented in this encounter [facility] 06-02-2024 History of Presen t illness Narrative Images from the original note were not included. Subjective Patient ID: Simi Garcia is a 34 y.o. female who [facility]. Simi is present today to become established. She does have left cervical pain. Started about 9 yrs ago, she slept wrong one night and woke up with the neck pain, she has went through PT and it helped. 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 Has been working out regularly. Diane santana had ALS, but no other significant family [...] 06/02/2025) for Wellness. documented in this encounter [facility] 05-24-2024 History of Presen t illness Narrative [...] 37w4d 12 oz F Vag-Spont 1 2016 Past Medical / Surgical History Past [...] 07/0605/24/2024 1:31 PM documented in this encounter [facility] 05-14-2024 Miscellaneous Notes Formattin g of this note might be different from the original. Patient lvm to have someone give her a call back. documented in this encounter [facility] 05-14-2024 Telephone encount er Note Patient lvm to have someone give her a call back. [facility] Evaluation note Diagnosis Cervical pain- Primary Cervicalgia Chronic scapular pain Cervical radiculopathy at C5 documented in this encounter [facility] Healthcare[facility]* Diagnosis Miscarriage Unspecified spontaneous without [...] radiculopathy at C5 documented in this encounter [facility]* Diagnosis Chronic left shoulder pain- Primary Pain in joint, shoulder region Gastroesophageal reflux disease without esophagitis Esophageal reflux Spasm of left trapezius muscle Miscarriage Unspecified spontaneous without mention of complication documented in this encounter [facility]* Diagnosis Cervical spine pain- Primary Fine tremor Abnormal involuntary movements [facility] Diagnosis care, subsequent in first trimester Encounter for drug screening documented [facility] this [facility]* Diagnosis Cervical pain- Primary Cervicalgia Chronic scapular pain Cervical radiculopathy at C5 documented in this encounter [facility] HealthcareInstructionsNot on filedocumented in this encounterSelect Medical [facility] SystemReason for visit Narrative* Consultation (Routine) - Authorized Specialty Diagnoses / Procedures Referred By Cornel elias Referred To Contact Physical Therapy Diagnoses Cervical spine pain Procedures DC OFFICE/OUTPATIENT NEW HIGH MDM 60 MINUTES Shwetha Patricio PA [address] [facility] [address] [place] [address] Kavya Fonseca, PT [address] [facility] [address] [place] [address] Referral ID Status Reason Start Date Expiration Date Visits Requested Visits Authorized [id number] Authorized Consult and Treat 06/03/2024 11/30/2024 40 40 [facility] HealthcareReason for visit Narrative* Consultation (Routine) - Authorized Specialty Diagnoses / Procedures Referred By Contac t Referred To Contact Physical Therapy Diagnoses Cervical spine pain Procedures DC OFFICE/OUTPATIENT NEW HIGH MDM 60 MINUTES Shwetha Patricio PA [address] [facility] [address] [place] [address] Phone: tel: fax: Kavya Fonseca, PT [address] [facility] [address] [place] [address] Phone: tel: fax: Referral ID Status Reason Start Date Expiration Date Visits Requested Visits Authorized [id number] Authorized Consult and Treat 06/03/2024 11/30/2024 40 40 [facility] Summary Purpose Family History No Family History Records FoundNo Family History Records FoundNo Family History Records FoundNo Family History Records Found Advance Directives No Advanced Directives Records FoundNo Advanced Directives Records FoundNo Advanced Directives Records FoundNo Advanced Directives Records Found Reason for Referral Specialty Diagnoses / Procedures Referred By Contac t Referred To Contact Physical Therapy Diagnoses Cervical spine pain Procedures DC OFFICE/OUTPATIENT NEW HIGH MDM 60 MINUTES Shwetha Patricio PA [address] [facility] [address] [place] [address] Dixon Alba, PT [address] [place] [address] Referral ID Status Reason Start Date Expiration Date Visits Requested Visits Authorized [id number] Pending Review Specialty Services Required 06/02/2024 11/29/2024 1 1 Additional Source Comments INFORMATION SOURCE (unrecogn ized section and content) DATE CREATED AUTHOR 04/25/2022 [facility] DATE CREATED AUTHOR AUTHOR'S ORGANIZ ATION 08/11/2024 [facility] DATE CREATED AUTHOR AUTHOR'S ORGANIZ ATION 08/19/2024 [facility] DATE CREATED AUTHOR AUTHOR'S ORGANIZ ATION 10/06/2024 [facility] Care Teams (unrecognized sec tion and content) Laboratory Tester Relationship Specialty Start Date End Date Yong Lu APRN-CNP [address] [place] [address] PCP - Medical [employer] 09/15/15 09/14/99 Caroline Sher MD [address] [place] [address] PCP - General Family Medicine 06/10/24 Shwetha Patricio PA [address] [place] [address] Physician Experimental Display Builder Family Medicine 06/10/24 Laboratory Tester Relationship Specialty Start Date End Date Yong Lu APRN-CNP [address] [place] [address] PCP - Medical [facility] [employer] 09/15/15 09/14/99 Caroline Sher MD [address] [place] [address] PCP - General Family Medicine 06/10/24 Shwetha Patricio PA [address] [place] [address] Physician Experimental Display Builder Family Medicine 06/10/24 Laboratory Tester Relationship Specialty Start Date End Date Yong Lu APRN-CNP [address] [place] [address] PCP - Medical [employer] [employer] 09/15/15 09/14/99 Caroline Sher MD [address] [place] [address] PCP - General Family Medicine 06/10/24 Shwetha Patricio PA [address] [place] [address] Physician Experimental Display Builder Family Medicine 06/10/24 Laboratory Tester Relationship Specialty Start Date End Date Yong Lu APRN-MANAGER PRICING [address] [place] [address] PCP - Medical [facility] [employer] 09/15/15 09/14/99 Caroline Sher MD [address] [place] [address] PCP - General Family Medicine 06/10/24 Shwetha Patricio PA [address] [place] [address] Physician Experimental Display Builder Family Medicine 06/10/24 Laboratory Tester Relationship Specialty Start Date End Date Yong Lu APRN-MANAGER PRICING [address] [place] [address] PCP - Medical [employer] [employer] 09/15/15 09/14/99 Caroline Sher MD [address] [place] [address] PCP - General Family Medicine 06/10/24 Shwetha Patricio PA [address] [place] [address] Physician Experimental Display Builder Family Medicine 06/10/24 Laboratory Tester Relationship Specialty Start Date End Date Maggielul Yongjason Nam APRN-MANAGER PRICING [address] [place] [address] PCP - Medical [employer] [employer] 09/15/15 09/14/99 Caroline Sher MD [address] [place] [address] PCP - General Family Medicine 06/10/24 Shwetha Patricio PA [address] [facility] [address] [place] [address] Physician Experimental Display Builder Family Medicine 06/10/24 Laboratory Tester Relationship Specialty Start Date End Date Yong Lu APRN-MANAGER PRICING [address] [place] [address] PCP - Medical [employer] [employer] 09/15/15 09/14/99 Caroline Sher MD [address] [facility] [address] [place] [address] PCP - General Family Medicine 06/10/24 Shwetha Patricio PA [address] [place] [address] Physician Experimental Display Builder Family Medicine 06/10/24 Laboratory Tester Relationship Specialty Start Date End Date Caroline Sher MD [address] [place] [address] PCP - General Family Medicine 06/10/24 Shwetha Patricio PA [address] [place] [address] PCP - Medical [employer] 09/15/15 09/14/99 Shwetha Patricio PA [address] [place] [address] Physician Experimental Display Builder Family Medicine 06/10/24 Laboratory Tester Relationship Specialty Start Date End Date Caroline Sher MD [address] [place] [address] PCP - General Family Medicine 06/10/24 Shwetha Patricio PA [address] [place] [address] PCP - Medical [employer] 09/15/15 09/14/99 Shwetha Patricio PA [address] [place] [address] Physician Experimental Display Builder Family Medicine 06/10/24 Laboratory Tester Relationship Specialty Start Date End Date Unallocated, Anamaria Heath MD [address] [place] [address] PCP - General 03/26/23 Yong Lu APRN-MANAGER PRICING [address] [place] [address] PCP - Medical [employer] [employer] 09/15/15 09/14/99 Laboratory Tester Relationship Specialty Start Date End Date Unallocated, Anamaria Heath MD [address] [place] [address] PCP - General 03/26/23 Yong Lu APRN-MANAGER PRICING [address] [place] [address] PCP - Medical [facility] [employer] 09/15/15 09/14/99 Laboratory Tester Relationship Specialty Start Date End Date Unallocated, Anamaria Heath MD [address] [place] [address] PCP - General 03/26/23 Yong Lu APRN-[facility] [address] [place] [address] PCP - Medical [employer] 09/15/15 09/14/99 Laboratory Tester Relationship Specialty Start Date End Date Unallocated, Anamaria Heath MD [address] [place] [address] PCP - General 03/26/23 Yong Lu APRN-[facility] [address] [place] [address] PCP - Medical [employer] 09/15/15 09/14/99 Laboratory Tester Relationship Specialty Start Date End Date Unallocated, Anamaria Heath MD [address] [place] [address] PCP - General 03/26/23 Yong Lu APRN-[facility] [address] [place] [address] PCP - Medical [employer] 09/15/15 09/14/99 Laboratory Tester Relationship Specialty Start Date End Date [facility] [address] [place] [address] PCP - Medical [employer] 09/15/15 09/14/99 Caroline Sher MD [address] [place] [address] PCP - General Family Medicine 06/10/24 Shwetha Patricio PA [address] [place] [address] Physician Experimental Display Builder Family Medicine 06/10/24 Laboratory Tester Relationship Specialty Start Date End Date Yong Lu APRN-MANAGER PRICING [address] [place] [address] PCP - Medical [employer] 09/15/15 09/14/99 Caroline Sher MD [address] [place] [address] PCP - General Family Medicine 06/10/24 Shwetha Patricio PA [address] [place] [address] Physician Experimental Display Builder Family Medicine 06/10/24 Laboratory Tester Relationship Specialty Start Date End Date Unallocated, [facility] Provider, [address] [place] [address] PCP - General 03/26/23 Yong Lu APRN-MANAGER PRICING [address] [place] [address] PCP - [facility] 09/15/15 09/14/99 Laboratory Tester Relationship Specialty Start Date End Date No Pcp, [place] [address] PCP - General Family Medicine 08/02/24 Reason [...] BE BASED ON THE PRIMARY CLINICAL RECORDS. [facility] [employer] [facility]. provides no warranty or guarantee of the accuracy or completeness of information in this document.
--- NOTE | 2024-10-06 15:31 | P.CN_ITS ---
Consult Note: HPI Data of Consult Patient: known to practice within the last 3 years Requesting Physician: Asya Mcknight NP Primary Care Provider: KATY PATRICIO Consult Narrative Reason for consult: f/u Narrative: Simi Cueto a [place] 34 year old female presents for evaluation of cervical radiculopathy. 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 Recently underwent left C5,6,7 TFESI with no improvement per pt, however shes noticing no numbness or tingling in her LUE since the injection. does have a sore neck and intermittent posterior shoulder pain. Pain today 09/24. cc:: CC: Asya Mcknight NP Review of Systems ROS Status of ROS 10 or more systems reviewed and unremark able except as noted in history and below Musculoskeletal Reports: neck pain PFSH PFSH Surgical History H/O dilation and curettage ?Z98.890 - Other specified postprocedural states (ICD-10) [place] teeth extracted ?K08.409 - Partial loss of teeth, unspecified cause, unspecified class (ICD- 10) Meds Home Medications and Allergies Home Medications ?Medication ?Instructions ?Recorded ?Confirmed ?Type baclofen 10 mg tablet 10 mg PO BID 09/13/24 09/27/24 History diazepam 5 mg tablet (Valium) 5 mg PO DAILY 09/27/24 09/27/24 History Allergies Allergy/AdvReac Type Severity Reaction Status Date / Time No Known Drug Allergies Allergy Verified 09/27/24 08:25 Exam Constitutional Documenting provider has reviewed patient's vital signs: yes Common normals: no apparent distress, oriented x3, healthy appearing, alert and well nourished General appearance: cooperative [facility] Common normals: normocephalic, hearing grossly normal bilaterally and moist oral mucous membranes Head and scalp: normocephalic Eye Common normals: PERRL Pupil: PERRL Neck & C-Spine Common normals: full ROM General: normal visual inspection Cervical spine: no pain with cervical ROM and no cervical spine tenderness Other: negative spurlings negative facet loading no pain produceable on exam Chest Common normals: inspection of chest normal Respiratory Common normals: normal respiratory effort, no retractions and no use of accessory muscles Neuro Common normals: oriented x3, CN's II-XII intact bilaterally, moves all extremities, no focal motor deficits, no sensory deficits noted and deep tendon reflexes 2+ bilaterally Sensorium/orientation: alert Motor exam: strength 5/5 throughout and no movement abnormalities noted Psych Common normals: mental status grossly normal, thought process normal, cooperative, affect normal, speech normal and activity/motor behavior normal Speech: normal speech Thought process: normal thought process Assessment and Plan Assessment and Plan (1) Cervical radiculopathy: (2) Cervical disc displacement: (3) Myalgia, other site: (4) Cervical spondylosis: Plan dc baclofen, start tizanidine 2-8mg daily PRN pain/spasms. denies current , will call if she becomes pending Neurology consultation for intermittent numbness of left side of face/jawline can continue career development coordinator as tolerated pt interested in second opinion, briefly discussed sports medicine consultation as she historically has had left posterior shoulder pain and could be secondary to muscular system although MRI does support cervical radiculopathy and on exam her radicular symptoms have improved with recent SENG f/u 2 months, will further assess response to SENG and neurology consultation
== END 2024-10-06 15:04 | disposition home or self-care (01) ==
LOC: PM 15:03
PROVIDERS: PCP Physician Assistant; Visit Provider Nurse Practitioner
DX: M54.12 Radiculopathy, cervical region (principal); M50.20 Other cervical disc displacement, unspecified cervical region; M79.18 Myalgia, other site; M47.812 Spondylosis without myelopathy or radiculopathy, cervical region
CPT/HCPCS: G0463